=== PATIENT | female | born 1945 | race Caucasian/White ===

== ENCOUNTER 2017-01-19 16:40 | Emergency (ER) | payer OTHER ==
[~2017-01-19] VITALS: Ht 137.2 cm; Wt 66.3 kg
[~2017-01-19 16:40] MED LIST: CALTRATE 600 +1 EACH PO; CALTRATE 600600 MG PO; CARLSON VITAM2000 IU PO; CEFUROXIME500 MG PO; CENTRUM SILVER1 EAC3 PO; CENTRUM1 TA1 PO; CIPRO 500MG TA500 MG PO; CLEOCIN HCL300 M1 PO; DILAUDID2 M1 PO; FISH OIL 1,2001 EAC2 PO; FLAGYL500 MG PO; MASON NATURAL1200 MG PO; NORCO 325 MG-51 TAB PO; NORVASC 10MG10 MG PO; NORVASC10 M1 PO; PERCOCET 325 MG1 TA2 PO; POTASSIUM99 M1 PO; PRAVASTATIN SOD40 M2 PO; PROLIA60 MG/1 ML INJ; PROLIA60 MG/ML SC; TENORMIN 50MG T50 MG PO; TENORMIN50 M1 PO; TRAMADOL HCL50 M1 PO; VITAMIN B-121000 MC3 PO; VITAMIN B121000 MC2 PO; VITAMIN D2000 UNI1 PO; VITAMIN E200 I1 PO; VITAMIN E200 UNIT PO; ZYRTEC10 M3 PO; ZYRTEC10 MG PO
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
[2017-01-19] MEDS ORDERED: BACLOFEN10 M1 PO (21:52)
[2017-01-19] MEDS ORDERED: PERCOCET 5-3251 EACH PO (21:52)
[2017-01-19 21:56] VITALS: BP 118/75
[2017-01-19] MEDS ORDERED: INCENTIVE SPIROMETER (22:10)
== END 2017-01-19 22:25 ==
LOC: ERH 16:40
DX: S22.31XA Fracture of one rib, right side, initial encounter for closed fracture (principal); S80.02XA Contusion of left knee, initial encounter; S63.502A Unspecified sprain of left wrist, initial encounter; V89.2XXA Person injured in unspecified motor-vehicle accident, traffic, initial encounter; Y92.488 Other paved roadways as the place of occurrence of the external cause
CPT/HCPCS: 71111; 73110-LT; 73562-LT; 81001; 93005; 93010

== ENCOUNTER 2017-11-01 19:41 | Inpatient (IN) | payer OTHER ==
[~2017-11-01] VITALS: Ht 167.6 cm; Wt 62.8 kg
[~2017-11-01 19:41] MED LIST changes: +BACLOFEN10 M1 PO; +INCENTIVE SPIROMETER; +PERCOCET 5-3251 EACH PO
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
[2017-11-01 20:30] LABS: PT 10.7 SEC (9.4-12.5); PTT 36 SEC (25-37)
[2017-11-01 20:45] LABS: ABSOLUTE BASOPHIL COUNT 0 /CUMM (0.0-0.2); ABSOLUTE EOSINOPHIL COUNT 0.1 /CUMM (0.0-0.7); ABSOLUTE GRANULOCYTE CT 19.7 /CUMM (1.4-6.5); ABSOLUTE LYMPH COUNT 0.9 /CUMM (1.2-3.4); ABSOLUTE MONOCYTE COUNT 0.9 /CUMM (0.10-0.60); BASOPHIL % 0 % (0.0-2.0); EOSINOPHIL % 0.5 % (0-5); GRANULOCYTE % 91.4 % (42.2-75.2); HEMATOCRIT 43.9 % (37-47); MEAN CORPUSCULAR HGB 30.6 PG (27.0-31.0); MEAN CORPUSCULAR HGB CONC 33.3 G/DL (33.0-37.0); MEAN CORPUSCULAR VOLUME 91.8 FL (81.0-99.0); MEAN PLATELET VOLUME 8.7 FL (7.4-10.4); PLATELET COUNT 238 /CUMM (130-400); RBC DISTRIBUTION WIDTH 13.1 % (11.5-14.5); RED BLOOD CELL CT 4.78 /CUMM (4.20-5.40); WHITE BLOOD CELL COUNT 21.6 /CUMM (4.8-10.8)
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
--- NOTE | 2017-11-01 22:27 | Cons- Orthopedic ---
General Information and HPI Consulting Request Date of Consult: 11/01/17 Requested By: Emergency department/hospitalist service Reason for Consult: Left hip fracture Source of Information: patient Exam Limitations: no limitations History of Present Illness: Ms. Ross 72-year-old female with a past medical history of hypertension, hypercholesterolemia, osteoporosis presents today after mechanical fall at home. She states that she was not dizzy nor complained of blurred vision chest pain shortness of breath prior to fall. After the fall she did ambulate for approximately 2 hours at home but limp and leg became heavier with activity. After sitting down at dinner she was unable to stand at which time she was transferred to [facility] emergency room at which time x-rays were taken demonstrating impacted left femoral neck fracture. Allergies/Medications Allergies: Coded Allergies: celecoxib (From CELEBREX) (Severe, RASH, HIVES 01/13/16) Sulfa (Sulfonamide Antibiotics) (RASH, HIVES 01/13/16) codeine (N/V/D 01/13/16) Home Med List: Amlodipine Besylate (Norvasc) 10 MG TABLET 1 TAB PO DAILY BP (Reported) Atenolol (Tenormin) 50 MG TABLET 1 TAB PO DAILY BP (Reported) Calcium Carbonate/Vitamin D3 (Caltrate 600 + D Tablet) 1 EACH TABLET 1 TAB PO DAILY SUPPLEMENT (Reported) Cetirizine HCl (Zyrtec) 10 MG TABLET 1 TAB PO PRN ALLERGIES (Reported) Cholecalciferol (Vitamin D3) (Vitamin D) 2,000 UNIT TABLET 1 TAB PO DAILY SUPPLEMENT (Reported) Cyanocobalamin (Vitamin B-12) 1,000 MCG TABLET 1 TAB PO DAILY SUPPLEMENT ( Reported) Denosumab (Prolia) 60 MG/1 ML SYRINGE 60 MG INJ Q6M BONES (Reported) Multivit-Min/FA/Lycopen/Lutein (Centrum Silver Tablet) 1 EACH TABLET 1 TAB PO DAILY SUPPLEMENT (Reported) [place]-3S/Dha/Epa/Fish Oil (Fish Oil 1,200 MG Softgel) 1 EACH CAPSULE 1 CAP PO DAILY SUPPLEMENT (Reported) Potassium Gluconate (Potassium) 595 MG (99 MG) TABLET 1 TAB PO DAILY SUPPLEMENT (Reported) Pravastatin Sodium 40 MG TABLET 1 TAB PO DAILY CHOLESTEROL (Reported) Tramadol HCl 50 MG TABLET 1-2 TAB PO DAILY PAIN (Reported) Vitamin E Acetate (Vitamin E) 200 UNIT CAPSULE 1 CAP PO DAILY SUPPLEMENT ( Reported) Past History Medical History Neurological: NONE EENT: NONE Cardiovascular: hypertension Respiratory: emphysema Gastrointestinal: peptic ulcer disease Renal: NONE Musculoskeletal: SCOLIOSIS Psychiatric: NONE Endocrine: NONE Blood Disorders: NONE Cancer(s): NONE PROTEIN 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 Respiratory: normal breath sounds, no respiratory distress Cardiovascular: regular rate/rhythm Gastrointestinal: normal bowel sounds, soft, non-tender Extremities: normal inspection, left groin tenderness with passive internal and external rotation of left hip Neurologic/Psych: oriented x 3 Last 24 Hours of Labs: Laboratory Tests 11/01 Chemistry Lactic Acid Pending Urines Urine Color (YEL,AMB,STR) YEL Urine Clarity (CLEAR) CLEAR Urine pH (5.0 - 8.0) 6.0 Ur Specific [place] (1.001 - 1.035) 1.015 Urine Protein (NEG,<30 MG/DL) NEG Urine Ketones (NEG) NEG Urine Nitrite (NEG) NEG Urine Bilirubin (NEG) NEG Urine Urobilinogen (0.1 - 1.0 EU/dl) 0.2 Ur Leukocyte Esterase (NEG) NEG Ur Microscopic SEDIMENT EXAMINED Urine RBC (0 - 5 /HPF) RARE Urine WBC (0 - 2 /HPF) RARE Ur Epithelial Cells (NONE,FEW) RARE Urine Hemoglobin (NEG) TRACE-INTACT Urine Glucose (N MG/DL) NEG 11/01 2002 Chemistry Sodium (137 - 145 mmol/L) 137 Potassium (3.5 - 5.1 mmol/L) 4.3 Chloride (98 - 107 mmol/L) 100 Carbon Dioxide (22 - 30 mmol/L) 26 Anion Gap (5 - 16) 11 BUN (7 - 17 mg/dL) 16 Creatinine (0.5 - 1.0 mg/dL) 0.6 Estimated GFR (>60 ml/min) > 60 BUN/Creatinine Ratio (7 - 25 %) 26.7 H Glucose (65 - 99 mg/dL) 139 H Calcium (8.4 - 10.2 mg/dL) 9.3 Total Bilirubin (0.2 - 1.3 mg/dL) 0.6 AST (14 - 36 U/L) 33 ALT (9 - 52 U/L) 34 Alkaline Phosphatase (<127 U/L) 63 Troponin I (< 0.11 ng/ml) < 0.01 Total Protein (6.3 - 8.2 g/dL) 6.3 Albumin (3.5 - 5.0 g/dL) 4.1 Globulin (1.9 - 4.2 gm/dL) 2.2 Albumin/Globulin Ratio (1.1 - 2.2 %) 1.9 Coagulation PT (9.4 - 12.5 SEC) 10.7 INR (0.90 - 1.19) 1.02 APTT (25 - 37 SEC) 36 Hematology CBC w Diff MAN DIFF ORDERED WBC (4.8 - 10.8 /CUMM) 21.6 H RBC (4.20 - 5.40 /CUMM) 4.78 Hgb (12.0 - 16.0 G/DL) 14.6 Hct (37 - 47 %) 43.9 MCV (81.0 - 99.0 FL) 91.8 MCH (27.0 - 31.0 PG) 30.6 MCHC (33.0 - 37.0 G/DL) 33.3 RDW (11.5 - 14.5 %) 13.1 Plt Count (130 - 400 /CUMM) 238 MPV (7.4 - 10.4 FL) 8.7 Gran % (42.2 - 75.2 %) 91.4 H Lymphocytes % (20.5 - 51.1 %) 4.1 L Monocytes % (1.7 - 9.3 %) 4.0 Eosinophils % (0 - 5 %) 0.5 Basophils % (0.0 - 2.0 %) 0 Absolute Granulocytes (1.4 - 6.5 /CUMM) 19.7 H Segmented Neutrophils (42.2 - 75.2 %) 76 H Band Neutrophils (0.0 - 5.0 %) 13 H Absolute Lymphocytes (1.2 - 3.4 /CUMM) 0.9 L Lymphocytes (20.5 - 51.1 %) 4 L Monocytes (1.7 - 9.3 %) 6 Absolute Monocytes (0.10 - 0.60 /CUMM) 0.9 H Absolute Eosinophils (0.0 - 0.7 /CUMM) 0.1 Absolute Basophils (0.0 - 0.2 /CUMM) 0 Metamyelocytes (0.0 - 1.0 %) 1 Platelet Estimate (ADEQUATE) ADEQUATE Normochromic RBCs VERIFIED Imaging Results: SERVICE DATE: 11/01/17 EXAM TYPE: RAD - XRY-AP PELVIS; XRY-HIP 2-3 VIEWS, LEFT EXAMINATION: XR PELVIS CLINICAL INFORMATION: Left-sided trauma COMPARISON: CT pelvis 03/01/2017 TECHNIQUE: AP view of the pelvis. 2 AP and one lateral views of the left hip. FINDINGS: Pelvis: There is an impacted subcapital left femoral neck fracture. The pelvic ring is intact. Surgical anchors from prior mesh abdominal wall repair. Idiopathic lumbar scoliosis. Left hip: Acute impacted left subcapital femoral neck fracture. IMPRESSION: Acute, impacted left subcapital femoral neck fracture. DICTATED BY: Shaun Ramires MD DATE/TIME DICTATED:11/01/172047 FUNDS TRANSFER CLERK:KEM DATE/TIME TRANSCRIBED:11/01/172047 Assessment/Plan Assessment/Plan Mrs. Ross 72-year-old female who sustained a mechanical fall at home resulting in an impacted left femoral neck fracture. This case was reviewed by Dr. Kolb who is known to this patient and he recommends that the patient undergo open reduction internal fixation of left hip fracture when medically cleared. Plan Admit to medical service Nothing by mouth after midnight 2 operating room when medically cleared for open reduction internal fixation of left hip fracture Consult Acknowledgment - Thank you for your consult request.
--- NOTE | 2017-11-01 22:44 | History & Physical ---
Kallie Lozada MD 11/01/17 7005: General Information and HPI MD Statement: I have seen and personally examined CLARISA MONSIVAIS and documented this H&P. The patient is a 72 year old F who presented with a patient stated chief complaint of mechanical fall Source of Information: patient, old records Exam Limitations: no limitations History of Present Illness: Patient is a 72-year-old female with a past medical history significant for hypertension, hyperlipidemia, scoliosis, chronic lower back pain, osteoarthritis , osteoporosis, emphysema not on home oxygen, peptic ulcer disease with bleeding peptic ulcer requiring gastrectomy, cholecystectomy, hernia repair, former smoker 20 years ago, that presents to us status post a mechanical fall. The patient is brought in by ambulance from home where she lives with her and cat. 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 She states that she tripped on the couch cover and fell on her left side. The patient states that she commonly falls on her left side and in fact has fractured several ribs and her humerus in the past. The patient denies any preceding lightheadedness, dizziness, any associated confusion, seizure like activity, blurry vision at the time, chest pain, shortness of breath, palpitations. The patient states that she was able to get up and did continue about her business the next 2 hours, limping to ambulate. The patient states that her baseline she shuffles her feet and has done so ever since she was young due to her scoliosis. The patient states that she went to the bathroom and when she tried to get up from the toilet felt a "jerk" in her hip. She was able to stand up but when she sat down for dinner wasn't able to stand up after it was over so decided to come in to see us. She denies any loss of consciousness or hitting her head. The patient states now that the pain in her hip is nonradiating. In fact she feels no pain "because of the morphine that you gave me". She denies any numbness or tingling sensation. The patient also denies headache but states that she does have "issues" with her sinuses frequently. She also denies any abdominal pain. She denies any recent change in bowel or urinary habits. She does state that she has recently had some on and off blurriness of her eyes bilaterally. She has been worked up with an clinic specialist who recently prescribed her steroid drops. The patient is not on any blood thinners. She takes vitamin B12, vitamin D, fish oil daily. The patient walks unassisted at home, has stairs in and out of the house that she also does unassisted. She does note pain in the knees due to her arthritis most days. The patient as stated before, has had previous falls. The patient has bone scans done every 2 years but she does not remember her T score. The patient's doctor is Dr. Oliver. The patient has seen an orthopedist in the past who prescribed her tramadol but stated that he would not intervene for her osteoarthritis. Patient has a family history of scoliosis and various cancers. The patient lives with her and states that she feels safe at home. 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 She notes rare social alcohol use, no drugs, quit smoking 20 years ago. Allergies/Medications Allergies: Coded Allergies: celecoxib (From CELEBREX) (Severe, RASH, HIVES 01/13/16) Sulfa (Sulfonamide Antibiotics) (RASH, HIVES 01/13/16) codeine (N/V/D 01/13/16) Home Med list Amlodipine Besylate (Norvasc) 10 MG TABLET 1 TAB PO DAILY BP (Reported) Atenolol (Tenormin) 50 MG TABLET 1 TAB PO DAILY BP (Reported) Calcium Carbonate/Vitamin D3 (Caltrate 600 + D Tablet) 1 EACH TABLET 1 TAB PO DAILY SUPPLEMENT (Reported) Cetirizine HCl (Zyrtec) 10 MG TABLET 1 TAB PO PRN ALLERGIES (Reported) Cholecalciferol (Vitamin D3) (Vitamin D) 2,000 UNIT TABLET 1 TAB PO DAILY SUPPLEMENT (Reported) Cyanocobalamin (Vitamin B-12) 1,000 MCG TABLET 1 TAB PO DAILY SUPPLEMENT ( Reported) Denosumab (Prolia) 60 MG/1 ML SYRINGE 60 MG INJ Q6M BONES (Reported) Multivit-Min/FA/Lycopen/Lutein (Centrum Silver Tablet) 1 EACH TABLET 1 TAB PO DAILY SUPPLEMENT (Reported) [place]-3S/Dha/Epa/Fish Oil (Fish Oil 1,200 MG Softgel) 1 EACH CAPSULE 1 CAP PO DAILY SUPPLEMENT (Reported) Potassium Gluconate (Potassium) 595 MG (99 MG) TABLET 1 TAB PO DAILY SUPPLEMENT (Reported) Pravastatin Sodium 40 MG TABLET 1 TAB PO DAILY CHOLESTEROL (Reported) Tramadol HCl 50 MG TABLET 1-2 TAB PO DAILY PAIN (Reported) Vitamin E Acetate (Vitamin E) 200 UNIT CAPSULE 1 CAP PO DAILY SUPPLEMENT ( Reported) Compliance With Home Meds: GOOD Past History Travel History Traveled to [place] past 21 day No Medical History Neurological: NONE EENT: NONE Cardiovascular: hypertension Respiratory: emphysema Gastrointestinal: peptic ulcer disease Renal: NONE Musculoskeletal: SCOLIOSIS Psychiatric: NONE Endocrine: NONE Blood Disorders: NONE Cancer(s): NONE MEDICAL INSURANCE CODER/Reproductive: NONE Tetanus Vaccine: 12/31/15 Surgical History Surgical History: cholecystectomy, hernia repair-incisional, billroth I gastrectomy Past Family/Social History Family History Relations & Conditions if any FH: scoliosis Relation not specified Review of Systems Review of Systems Constitutional: Reports: weakness. EENTM: Reports: blurred vision. Cardiovascular: Reports: no symptoms. Respiratory: Reports: no symptoms. GI: Reports: no symptoms. Genitourinary: Reports: no symptoms. Musculoskeletal: Reports: no symptoms (left hip pain from fall), back pain, joint pain, muscle pain. Skin: Reports: no symptoms. Neurological/Psychological: Reports: no symptoms. Hematologic/Endocrine: Reports: no symptoms. Immunologic/Allergic: Reports: no symptoms. Exam & Diagnostic Data Last 24 Hrs of Vital Signs/I&O Vital Signs Date Time Temp Pulse Resp B/P B/P Pulse O2 O2 Flow FiO2 Mean Ox Delivery Rate 11/02 0040 97.6 85 16 123/73 92 Room Air 11/01 2210 98.4 77 16 130/61 93 Room Air 11/01 1953 94 Room Air 11/01 1952 97.3 79 18 167/77 94 Room Air Intake & Output 11/02 0800 03 0000 11/01 1600 Intake Total Output Total 1200 Balance -1200 Output, Urine 1200 Patient 139 lb Weight Physical Exam General Appearance Alert, Oriented X3, Cooperative, No Acute Distress Skin No Rashes, No Breakdown, No Significant Lesion Skin Temp/Moisture Exam: Warm/Dry Sepsis Skin Exam (color): Normal for Ethnicity HEENT Atraumatic, EOMI, Mucous Membr. moist/pink Neck Supple Cardiovascular Regular Rate, Normal S1, Normal S2, No Murmurs Lungs Clear to Auscultation, Normal Air Movement Abdomen Normal Bowel Sounds, Soft, No Tenderness, No Hepatospenomegaly Neurological Normal Speech, Sensation Intact Extremities No Clubbing, No Cyanosis, Normal Pulses, +2 non pitting lower ext edema Vascular Normal Pulses, Pulses Symmetrical Assessment/Plan Assessment: Patient is a 72-year-old female with a past medical history significant for hypertension, hyperlipidemia, scoliosis, chronic lower back pain, osteoarthritis , osteoporosis, emphysema not on home oxygen, peptic ulcer disease with bleeding peptic ulcer requiring gastrectomy, cholecystectomy, hernia repair, former smoker 20 years ago, that presents to us status post a mechanical fall. Patient has no neurologic sequelae didn't has no neurologic sequelae, is on blood thinners, usually ambulates independently. Vitals in the ED were heart rate 79, respiratory rate 18, blood pressure 167/77 decreasing to 130/61 at the time of interview, 94% oxygen saturation on room air , afebrile. Labs were pertinent for WBC count of 21.6 with a granulocyte predominance and increased bands. Hemoglobin 14.6, platelets 238, urinalysis and coag panel normal, creatinine 0.6, glucose mildly elevated 139, lactic acid negative at 1.3, troponin negative. X-ray of the hip and pelvis showed acute impacted left subcapital femoral neck fracture. Chest x-ray showed left humeral fracture, left lateral third to seventh rib fractures, no acute lung issues. EKG showed a rate of 68, T-wave inversions in V1 and V2 with a QTC of 426 unchanged from previous EKG several months prior. Plan Admit patient to general medicine floors for medical management and clearance prior to orthopedic surgery. Femur fracture We have consulted with orthopedics who will do an open reduction and internal fixation procedure tomorrow Patient METS are about 3 as she does participate in light to moderate intensity activities with some disability secondary to increased pain of the knees with her osteoarthritis. Patient's RCRI is 0.4% for this low risk procedure. Patient is nothing by mouth after midnight Salcedo has been placed Type and cross has been done Pain control with Tylenol 650 for mild pain, Percocet for moderate pain and morphine for severe pain. Patient is on Prolia for her osteoporosis outpatient. We will continue her vitamin D inpatient. 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 Leukocytosis: Patient is basically asymptomatic with no evidence of infection except for increased white cell count. Unknown source as chest x-ray is normal, vitals are normal, urinalysis is normal, patient is afebrile. Patient is not on steroids other than eyedrops. Patient has no known history of cancer. She however does have a family history of various cancers. Blood cultures and urine cultures. Follow temperature and white blood cell count. Chronic medical problems Pravastatin 40 mg for her hyperlipidemia Atenolol 50 mg, amlodipine 10 mg for her hypertension Patient is nothing by mouth DVT prophylaxis with Alps, no pharmacologic anticoagulation in preparation for surgery Patient is full code As Ranked By This Provider Problem List: 1. Closed left hip fracture Qualifiers Encounter type: initial encounter Qualified Code: S72.002A - Fracture of unspecified part of neck of left femur, initial encounter for closed fracture 2. Contusion of left knee, initial encounter Core Measures/Misc (05/21) Acute Coronary Syndrome ACS Diagnosis: No Congestive Heart Failure Congestive Heart Failure Diagnosis No Cerebrovascular Accident CVA/TIA Diagnosis: No VTE (View Protocol) VTE Risk Factors Trauma No Mechanical VTE Prophylaxis d/t N/A MechProphylax Ordered No VTE Pharm Prophylaxis d/t Surgical Contraindication Sepsis (View protocol) Sepsis Present: No Anibal Yanes 11/01/17 2259: Resident Review Statement Resident Statement: examined this patient, discussed with promotions intern, agreed with promotions intern, reviewed images Other Findings: Mrs. Monsivais is a 72 yo women with PMHx of HTN, peptic ulcer disease, COPD, osteoporosis with a bone scan done 2 years ago. presented to ED after a mechanical fall found to have subcapital femoral neck fracture. Patient deies any current pain, she was medicated with morphine at ED, She denies any chect pain, SOB, fever, chills, palpitation, dizziness and no change in urinary or kari habits. EKG showed no acute changes, she is able to climb a flight of stairs with no issue prior to the fall, RCRI with low risk of cardiovascular events, will continue her home dose of B-gutierrez, amlodipine and losartan. She is a full code DVT ppx after the procedure Cathy Cole 11/02/17 0519: Attending MD Review Statement Attending Statement Attending MD Statement: examined this patient, discuss w/resident/PA/MANAGER PROPOSAL, agreed w/resident/PA/MANAGER PROPOSAL, reviewed EMR data (avail), reviewed images, amended to note Attending Assessment/Plan: CC: Fall PMH: HTN, HLD, scoliosis, osteoporosis, COPD, S/P gastrectomy secondary to bleeding peptic ulcer, S/P cholecystectomy Patient came to ER for left hip pain after fall. Patient was on sitting a phone call this afternoon when she may have tripped on something and fell on her left side. She had trauma to left hip and left side of the body, did not have any head strike, no loss of consciousness. Patient did not feel any dizziness, lightheadedness, chest pain, palpitations before the fall. Patient did not have any seizure or confusion after the fall. She got up after the fall and was walking for 2 hours, almost dragging her left leg. Gradually her pain worsened and when she had dinner she could not get up from the chair because of pain so she decided to come to ER. At baseline she is active, denies any complaints like angina or shortness of breath on exertion. No coronary artery disease, CVA history. Vitals: Afebrile, pulse in 70s, RR 18, blood pressure 130/61, saturating well on room air. On exam: A O 3, cooperative, no acute distress, neck supple, JVD normal, no lymphadenopathy, mucosa moist, no focal neurological deficit, no dependent edema , no obvious skin rashes or inflammation tenderness on left hip, left leg internally rotated, no bruises or tenderness on left upper extremity, elbow or shoulder. CVS: S1-S2, RRR. RS: Clear to auscultate bilaterally. Abdomen: Soft, NT, ND, bowel sounds present. CXR: Evidence of a prior left-sided trauma. No acute disease identified. Hip and pelvis x-ray: Acute, impacted left subcapital femoral neck fracture. Assessment and plan 72-year-old female with multiple comorbidities and osteoporosis presented in ER after what appears to be mechanical fall. Even after her fall she was walking on her own, dragging her left leg. But her pain was progressively worsened so she came to ER. She is found to have left femoral neck fracture. Orthopedic had been consulted, they plan surgery in a.m. Patient does not have any significant cardiac history, no CVA, no history of diabetes. Blood pressure appears controlled. She is asymptomatic for angina at baseline, active without symptoms. Patient's RCRI is 0.4% for this low risk procedure. Patient's found to have significant leukocytosis with left shift and 13 bands. At this point no obvious source of infection identified, patient is asymptomatic in that regard, chest x- ray unremarkable, urine analysis is normal, no obvious skin rashes or inflammation. Leukocytosis probably reactive + Left femoral neck fracture + Reactive leukocytosis : Repeat labs , watch for any fever spikes: in that situation need to start antibiotics + Preop evaluation + History of HTN, HLD, scoliosis, osteoporosis, COPD - Admit to general medicine - Continue gentle hydration - Nothing by mouth after midnight - Continue Salcedo catheter - Continue oral antihypertensives, nebulization and TRC - Anticoagulation after surgery - Follow blood cultures for leukocytosis, repeat labs in a.m. - Follow orthopedic recommendation - Adequate pain control
--- NOTE | 2017-11-02 05:20 | Admission Certification ---
Admission Certification Certification Statement - As attending physician, I certify that at the time of - admission, based on clinical presentation, severity of - symptoms, need for further diagnostic testing and - therapeutic interventions, and risk of adverse outcomes - without in-hospital treatment, in my clinical assessment, - this patient requires an acute hospital stay for a minimum - of two nights or longer. I have also considered psychsocial - factors such as support system, advanced age, financial - issues, cognitive issues, and failed out-patient treatments, - past re-admission history, safety of patient, and lack of - compliance as applicable. Specific rationale supporting this admission is: Left femur neck fracture
[2017-11-02 05:49] LABS: ABSOLUTE BASOPHIL COUNT 0 /CUMM (0.0-0.2); ABSOLUTE EOSINOPHIL COUNT 0.2 /CUMM (0.0-0.7); ABSOLUTE GRANULOCYTE CT 9.9 /CUMM (1.4-6.5); ABSOLUTE LYMPH COUNT 0.8 /CUMM (1.2-3.4); ABSOLUTE MONOCYTE COUNT 0.8 /CUMM (0.10-0.60); BASOPHIL % 0 % (0.0-2.0); EOSINOPHIL % 1.7 % (0-5); GRANULOCYTE % 84.7 % (42.2-75.2); MEAN CORPUSCULAR HGB 30.4 PG (27.0-31.0); MEAN CORPUSCULAR HGB CONC 33.3 G/DL (33.0-37.0); MEAN CORPUSCULAR VOLUME 91.3 FL (81.0-99.0); MEAN PLATELET VOLUME 8.2 FL (7.4-10.4); PLATELET COUNT 228 /CUMM (130-400); RBC DISTRIBUTION WIDTH 13.1 % (11.5-14.5); WHITE BLOOD CELL COUNT 11.7 /CUMM (4.8-10.8)
--- NOTE | 2017-11-02 09:45 | CT SCAN REPORT ---
EXAMINATION: CT PELVIS WITHOUT CONTRAST CLINICAL INFORMATION: Hip fracture. COMPARISON: Radiographs 11/01/2017. TECHNIQUE: Helical scanning was performed with submillimeter collimation through the pelvis. Sagittal and coronal multiplanar 2-D reconstructions were obtained. DLP: 700 mGy-cm FINDINGS: There is a subcapital fracture of the left femoral head with slight impaction, particularly the anterolateral aspect. Anterolaterally, there is 8 mm of overriding/impaction. This results in anterior angulation and anterior rotation of the femoral head within the acetabulum. There are no additional fractures. There is [id number] bilateral hip osteoarthritis and severe degenerative disc disease of L4 and L5 with large osteophytes on the left. Extensive atherosclerotic calcifications of the abdominal aorta and iliac branches. No pelvic adenopathy or free fluid. Incidental sigmoid diverticulosis and lower abdominal hernia repair mesh. IMPRESSION: Left femoral neck fracture as detailed in the comments. Anterolateral impaction results in slight anterior and valgus angulation and shortening of the femoral neck.
--- NOTE | 2017-11-02 10:26 | PN- Housestaff ---
Gregory Villaseñor 11/02/17 1017: Subjective Follow-up For: Left femoral neck fracture. Subjective: Patient seen and examined. Drowsy but arousable. Alert and oriented 3. Complains of pain in left hip, 10/10 when worse, under control at this time after morphine dose. Describes the pain is tolerable at this time. No numbness tingling in arms or legs. No chest pain palpitations or shortness of breath. Other systems reviewed and negative except as above. Review of Systems Constitutional: Reports: see HPI. Objective Last 24 Hrs of Vital Signs/I&O Vital Signs Date Time Temp Pulse Resp B/P B/P Pulse O2 O2 Flow FiO2 Mean Ox Delivery Rate 11/02 0959 99.4 90 18 162/74 94 11/02 0825 Room Air Room Air 11/02 0747 98.7 86 20 120/70 94 Room Air 11/02 0526 97.9 85 16 146/67 92 Room Air 11/02 0040 97.6 85 16 123/73 92 Room Air 11/01 2211 98.4 77 16 130/61 93 Room Air 11/01 1954 94 Room Air 11/01 195 97.3 79 18 167/77 94 Room Air Intake & Output 11/02 1600 11/02 0800 11/02 0000 Intake Total Output Total 800 1200 Balance -800 -1200 Output, Urine 800 1200 Patient 139 lb Weight Physical Exam General Appearance: Alert, Oriented X3, Cooperative Sepsis Skin Exam (color): Normal for Ethnicity HEENT: Atraumatic, PERRLA, EOMI Neck: Supple, No JVD Cardiovascular: Regular Rate, Normal S1, Normal S2 Lungs: Clear to Auscultation, Normal Air Movement Abdomen: Normal Bowel Sounds, Soft, No Tenderness Neurological: Normal Gait, Normal Speech Extremities: range of motion limited secondary to pain in left lower extremity. Tenderness to palpation left hip joint. No erythema, swelling or hematoma noted. Vascular: Normal Pulses, Pulses Symmetrical Current Medications: Current Medications Sig/Glo Start time Last Medication Dose Route Stop Time Status Admin Acetaminophen 0 .STK-MED ONE 11/02 1010 DC IV Acetaminophen 1,000 MG Q6H 11/02 0900 AC 11/02 N/A 1 UNIT IV 11/03 0314 1013 Acetaminophen 0 .STK-MED ONE 11/02 0047 DC PO Acetaminophen 650 MG Q6P PRN 11/01 2300 AC 11/02 PO 0046 Amlodipine Besylate 0 .STK-MED ONE 11/02 1010 DC PO Amlodipine Besylate 10 MG DAILY 11/02 1000 AC PO Atenolol 50 MG DAILY 11/02 1000 AC PO Cholecalciferol 1,000 IU DAILY 11/02 1000 AC PO Heparin Sodium 5,000 UNIT Q8 11/02 0600 AC 11/02 (Porcine) SC 0536 Heparin Sodium 0 .STK-MED ONE 11/02 0535 DC (Porcine) .ROUTE Morphine Sulfate 2 MG Q8P PRN 11/02 0900 AC IV Morphine Sulfate 0 .STK-MED ONE 11/02 0534 DC .ROUTE Morphine Sulfate 4 MG Q8P PRN 11/01 2300 DC 11/02 IV 0537 Morphine Sulfate 0 .STK-MED ONE 11/01 2012 DC .ROUTE Morphine Sulfate 2 MG ONCE ONE 11/01 1999 DC 11/01 IV 11/01 Oxycodone/ 1 TAB Q6P PRN 11/01 2300 AC Acetaminophen PO Polyethylene Glycol 17 GM DAILY 11/03 1000 AC PO Pravastatin Sodium 40 MG 1700 11/02 1700 AC PO Senna/Docusate Sodium 1 TAB BID 11/02 2200 AC PO Sodium Chloride 1,000 ML Q13H 11/02 0900 AC 11/02 IV 11/03 1059 1013 Last 24 Hrs of Lab/[place] Results Last 24 Hrs of Labs/Mics: Laboratory Tests 11/02/17 0530: Anion Gap 8, Estimated GFR > 60, BUN/Creatinine Ratio 20.0, CBC w Diff MAN DIFF ORDERED, RBC 4.60, MCV 91.3, MCH 30.4, MCHC 33.3, RDW 13.1, MPV 8.2, Gran % 84.7 H, Lymphocytes % 6.6 L, Monocytes % 7.0, Eosinophils % 1.7, Basophils % 0, Absolute Granulocytes 9.9 H, Segmented Neutrophils 74, Band Neutrophils 4, Absolute Lymphocytes 0.8 L, Lymphocytes 14 L, Monocytes 5, Absolute Monocytes 0.8 H, Eosinophils 1, Absolute Eosinophils 0.2, Basophils 2, Absolute Basophils 0, Platelet Estimate ADEQUATE, Normocytic RBCs VERIFIED, Normochromic RBCs VERIFIED 11/02/17 0117: Lactic Acid Cancelled 11/01/175: Lactic Acid 1.3 11/01/172114: Urine Color YEL, Urine Clarity CLEAR, Urine pH 6.0, Ur Specific [place] 1.015, Urine Protein NEG, Urine Ketones NEG, Urine Nitrite NEG, Urine Bilirubin NEG, Urine Urobilinogen 0.2, Ur Leukocyte Esterase NEG, Ur Microscopic SEDIMENT EXAMINED, Urine RBC RARE, Urine WBC RARE, Ur Epithelial Cells RARE, Urine Hemoglobin TRACE-INTACT, Urine Glucose NEG 11/01/172002: Anion Gap 11, Estimated GFR > 60, BUN/Creatinine Ratio 26.7 H, Glucose 139 H, Calcium 9.3, Total Bilirubin 0.6, AST 33, ALT 34, Alkaline Phosphatase 63, Troponin I < 0.01, Total Protein 6.3, Albumin 4.1, Globulin 2.2, Albumin/ Globulin Ratio 1.9, PT 10.7, INR 1.02, APTT 36, CBC w Diff MAN DIFF ORDERED, RBC 4.78, MCV 91.8, MCH 30.6, MCHC 33.3, RDW 13.1, MPV 8.7, Gran % 91.4 H, Lymphocytes % 4.1 L, Monocytes % 4.0, Eosinophils % 0.5, Basophils % 0, Absolute Granulocytes 19.7 H, Segmented Neutrophils 76 H, Band Neutrophils 13 H, Absolute Lymphocytes 0.9 L, Lymphocytes 4 L, Monocytes 6, Absolute Monocytes 0.9 H, Absolute Eosinophils 0.1, Absolute Basophils 0, Metamyelocytes 1, Platelet Estimate ADEQUATE, Normochromic RBCs VERIFIED Microbiology 11/01 2214 BLOOD: Blood Culture - RECD 11/01 2199 BLOOD: Blood Culture - RECD 11/01 2114 URINE ROUT: Urine Culture - RES Assessment/Plan Assessment: 72-year-old woman with long-standing history of osteoporosis presented to [facility] ED last night after sustaining a mechanical fall, to be scheduled for left hip open reduction and internal fixation here this afternoon. 1. Impacted left femoral neck fracture. Continue nothing by mouth status. Continue gentle hydration. Scheduled for ORIF later this afternoon. Optimal pain control with IV Tylenol [id number] and morphine for breakthrough pain. Bowel regimen while on narcotics. 2. Hypertension. Continue beta gutierrez and calcium channel gutierrez. 3. Hyperlipidemia. Continue atorvastatin. Full code. Heparin for DVT prophylaxis. Nothing by mouth. Problem List: 1. Closed left hip fracture Pain Ratin Pain Location: Left hip Pain Goal: Pain 4 or less Pain Plan: Tylenol and Morphine Tomorrow's Labs & Rationales: Post Op Branden CHRIS,Nga 11/02/17 1122: Attending MD Review Statement Attending Statement Attending MD Statement: examined this patient, discuss w/resident/PA/HEALTH MANAGEMENT CONSULTANT, agreed w/resident/PA/HEALTH MANAGEMENT CONSULTANT, discussed with family, reviewed EMR data (avail), discussed with nursing, discussed with case mgmt, reviewed images, amended to note Attending Assessment/Plan: Patient seen and examined, does complain of pain in her left hip. Patient is admitted with a fall as well as left femur fracture. Vital Signs Date Time Temp Pulse Resp B/P B/P Pulse O2 O2 Flow FiO2 Mean Ox Delivery Rate 11/02 0959 99.4 90 18 162/74 94 11/02 0825 Room Air Room Air 11/02 0747 98.7 86 20 120/70 94 Room Air 11/02 0526 97.9 85 16 146/67 92 Room Air 11/02 0040 97.6 85 16 123/73 92 Room Air 11/01 221 98.4 77 16 130/61 93 Room Air 11/01 1954 94 Room Air 11/01 1952 97.3 79 18 167/77 94 Room Air on exam; aox3, nad. cv; s1,s2, rrr resp; clear abd; soft, nt, bs+ ext; trace edema. Laboratory Tests 11/02 11/02 11/01 0530 0117 2215 Chemistry Sodium (137 - 145 mmol/L) 139 Potassium (3.5 - 5.1 mmol/L) 4.2 Chloride (98 - 107 mmol/L) 103 Carbon Dioxide (22 - 30 mmol/L) 28 Anion Gap (5 - 16) 8 BUN (7 - 17 mg/dL) 12 Creatinine (0.5 - 1.0 mg/dL) 0.6 Estimated GFR (>60 ml/min) > 60 BUN/Creatinine Ratio (7 - 25 %) 20.0 Lactic Acid (0.7 - 2.1 mmol/L) Cancelled 1.3 Hematology CBC w Diff MAN DIFF ORDERED WBC (4.8 - 10.8 /CUMM) 11.7 H RBC (4.20 - 5.40 /CUMM) 4.60 Hgb (12.0 - 16.0 G/DL) 14.0 Hct (37 - 47 %) 42.0 MCV (81.0 - 99.0 FL) 91.3 MCH (27.0 - 31.0 PG) 30.4 MCHC (33.0 - 37.0 G/DL) 33.3 RDW (11.5 - 14.5 %) 13.1 Plt Count (130 - 400 /CUMM) 228 MPV (7.4 - 10.4 FL) 8.2 Gran % (42.2 - 75.2 %) 84.7 H Lymphocytes % (20.5 - 51.1 %) 6.6 L Monocytes % (1.7 - 9.3 %) 7.0 Eosinophils % (0 - 5 %) 1.7 Basophils % (0.0 - 2.0 %) 0 Absolute Granulocytes (1.4 - 6.5 /CUMM) 9.9 H Segmented Neutrophils (42.2 - 75.2 %) 74 Band Neutrophils (0.0 - 5.0 %) 4 Absolute Lymphocytes (1.2 - 3.4 /CUMM) 0.8 L Lymphocytes (20.5 - 51.1 %) 14 L Monocytes (1.7 - 9.3 %) 5 Absolute Monocytes (0.10 - 0.60 /CUMM) 0.8 H Eosinophils (0 - 5.0 %) 1 Absolute Eosinophils (0.0 - 0.7 /CUMM) 0.2 Basophils (0.0 - 2.0 %) 2 Absolute Basophils (0.0 - 0.2 /CUMM) 0 Platelet Estimate (ADEQUATE) ADEQUATE Normocytic RBCs VERIFIED Normochromic RBCs VERIFIED 11/01 Chemistry Sodium (137 - 145 mmol/L) 137 Potassium (3.5 - 5.1 mmol/L) 4.3 Chloride (98 - 107 mmol/L) 100 Carbon Dioxide (22 - 30 mmol/L) 26 Anion Gap (5 - 16) 11 BUN (7 - 17 mg/dL) 16 Creatinine (0.5 - 1.0 mg/dL) 0.6 Estimated GFR (>60 ml/min) > 60 BUN/Creatinine Ratio (7 - 25 %) 26.7 H Glucose (65 - 99 mg/dL) 139 H Calcium (8.4 - 10.2 mg/dL) 9.3 Total Bilirubin (0.2 - 1.3 mg/dL) 0.6 AST (14 - 36 U/L) 33 ALT (9 - 52 U/L) 34 Alkaline Phosphatase (<127 U/L) 63 Troponin I (< 0.11 ng/ml) < 0.01 Total Protein (6.3 - 8.2 g/dL) 6.3 Albumin (3.5 - 5.0 g/dL) 4.1 Globulin (1.9 - 4.2 gm/dL) 2.2 Albumin/Globulin Ratio (1.1 - 2.2 %) 1.9 Coagulation PT (9.4 - 12.5 SEC) 10.7 INR (0.90 - 1.19) 1.02 APTT (25 - 37 SEC) 36 Hematology CBC w Diff MAN DIFF ORDERED WBC (4.8 - 10.8 /CUMM) 21.6 H RBC (4.20 - 5.40 /CUMM) 4.78 Hgb (12.0 - 16.0 G/DL) 14.6 Hct (37 - 47 %) 43.9 MCV (81.0 - 99.0 FL) 91.8 MCH (27.0 - 31.0 PG) 30.6 MCHC (33.0 - 37.0 G/DL) 33.3 RDW (11.5 - 14.5 %) 13.1 Plt Count (130 - 400 /CUMM) 238 MPV (7.4 - 10.4 FL) 8.7 Gran % (42.2 - 75.2 %) 91.4 H Lymphocytes % (20.5 - 51.1 %) 4.1 L Monocytes % (1.7 - 9.3 %) 4.0 Eosinophils % (0 - 5 %) 0.5 Basophils % (0.0 - 2.0 %) 0 Absolute Granulocytes (1.4 - 6.5 /CUMM) 19.7 H Segmented Neutrophils (42.2 - 75.2 %) 76 H Band Neutrophils (0.0 - 5.0 %) 13 H Absolute Lymphocytes (1.2 - 3.4 /CUMM) 0.9 L Lymphocytes (20.5 - 51.1 %) 4 L Monocytes (1.7 - 9.3 %) 6 Absolute Monocytes (0.10 - 0.60 /CUMM) 0.9 H Absolute Eosinophils (0.0 - 0.7 /CUMM) 0.1 Absolute Basophils (0.0 - 0.2 /CUMM) 0 Metamyelocytes (0.0 - 1.0 %) 1 Platelet Estimate (ADEQUATE) ADEQUATE Normochromic RBCs VERIFIED Urines Urine Color (YEL,AMB,STR) YEL Urine Clarity (CLEAR) CLEAR Urine pH (5.0 - 8.0) 6.0 Ur Specific [place] (1.001 - 1.035) 1.015 Urine Protein (NEG,<30 MG/DL) NEG Urine Ketones (NEG) NEG Urine Nitrite (NEG) NEG Urine Bilirubin (NEG) NEG Urine Urobilinogen (0.1 - 1.0 EU/dl) 0.2 Ur Leukocyte Esterase (NEG) NEG Ur Microscopic SEDIMENT EXAMINED Urine RBC (0 - 5 /HPF) RARE Urine WBC (0 - 2 /HPF) RARE Ur Epithelial Cells (NONE,FEW) RARE Urine Hemoglobin (NEG) TRACE-INTACT Urine Glucose (N MG/DL) NEG A/P; 72 y/o F with pmh sig for hypertension, hyperlipidemia, scoliosis, chronic lower back pain, osteoarthritis, osteoporosis, emphysema not on home oxygen, peptic ulcer disease with bleeding peptic ulcer requiring gastrectomy, cholecystectomy, hernia repair, former smoker 20 years ago, admitted with a mechanical fall and sustained a left femoral neck fracture. Patient is scheduled for surgery. Her RCRI risk index is 0.4 which puts her at low risk/class 1 with 0.4% risk of major cardiac events. Pain management is adequate. Patient to be taken to or this afternoon. Patient does take beta gutierrez at home which should be resumed, continue the rest of the medications. DVT prophylaxis: Heparin subcutaneous. Discussed with patient's at bedside.
[2017-11-02 14:05] VITALS: BP 112/72
--- NOTE | 2017-11-02 18:04 | Operative Report ---
Operative/Inv Procedure Report Surgery Date: 11/02/17 Name of Procedure: Left hip pinning Pre-Operative Diagnosis: Left hip femoral neck fracture Post-Operative Diagnosis: Same Estimated Blood Loss: scant Surgeon/Aircraft Painter Apprentice: ARDEN Anesthesia: laryngeal mask airway IV Fluids: See anesthesia record Implants: Susanna 6.5 cannulated screws Specimens: None Complications: None Condition: Stable Operative Indication: Patient 71-year-old female status post mechanical fall with an impacted left femoral neck fracture. She was indicated for percutaneous screw fixation. Risks and benefits of procedure discussed with the patient in detail. Operative/Procedure Note Note: Once informed consent was obtaine and the correct limb was identified patient brought to room placed on table supine position. Administration of general endotracheal anesthesia patient's leg was placed in the foot welsh for the fracture table. C-arm was brought in to confirm the fracture in the AP and lateral planes. The left lower 70 is an prepped and draped usual sterile fashion. To begin the procedure a small incision made on the lateral aspect of thigh after C-arm fluoroscopy confirmed starting position for the guidewires. Using C-arm fluoroscopy in the AP and lateral planes 3 guidewires were placed in to the femoral head across the femoral neck without complication. The position of the guidewires was confirmed both in the AP and lateral planes. The guidewires were then used to measure the screw length and we used 370 mm short thread cannulated screws. The guidewires were overdrilled with the cannulated drill. Screws were placed over the guidewires without compensation on the guidewires removed. Excellent fixation was obtained. Screw configuration screw length was confirmed in the AP and lateral planes. The wound was then irrigated with sterile saline and closed in layers. Skin was closed araceli. Sterile dressings applied and the patient was taken recovery room in stable condition.
[2017-11-02 19:46] VITALS: BP 112/70
--- NOTE | 2017-11-02 21:17 | PN- Orthopedic ---
Subjective Subjective: POSTOP CHECK Patient reports pain is improved and currently controlled. Denies numbness or tingling. Tolerating a diet, no nausea or vomiting Objective Vital Signs and I&Os Vital Signs Date Time Temp Pulse Resp B/P B/P Pulse O2 O2 Flow FiO2 Mean Ox Delivery Rate 11/02 194 98.7 78 18 112/70 97 Nasal 1.0L Cannula 11/02 1405 98.4 84 20 112/72 92 / 1400 Room Air 11/02 1202 87 122/63 11/02 1202 87 122/63 11/02 1200 98.6 87 15 122/63 94 Room Air Room Air 11/02 0959 99.4 90 18 162/74 94 11/02 0825 Room Air Room Air 11/02 0747 98.7 86 20 120/70 94 Room Air 11/02 0526 97.9 85 16 146/67 92 Room Air 11/02 0040 97.6 85 16 123/73 92 Room Air 11/01 2211 98.4 77 16 130/61 93 Room Air Intake & Output 11/02 1600 11/02 0800 11/02 0000 11/01 1600 11/01 0800 11/01 0000 Intake Total 150 Output Total 1150 1200 Balance -1000 -1200 Intake, IV 150 Intake, Oral 0 Output, Urine 1150 1200 Patient 139 lb 139 lb Weight Weight Reported by Patient Measurement Method Physical Exam: Gen - resting comfortably awake an alert in NAD Ext - Left hip dressing c/d/i, mild swelling, + sensation B/L, + dorsi/plantar flexion, + pedal pulses, alps in place, no significant edema or calf tenderness Assessment/Plan Assessment/Plan 72 F POD 0 s/p L hip pinning secondary to left femoral neck fracture PT eval in am, nwb x 2 weeks Cardiac diet, IVF Postop abx - ancef x2 Pain meds prn DVT ppx - lovenox 40 in am, d/c hsq Likely d/c paul in am Dressing change POD Will continue to follow
[2017-11-02 21:34] VITALS: BP 136/68
--- NOTE | 2017-11-02 22:58 | RADIOLOGY REPORT ---
EXAMINATION: XR HIP, LEFT CLINICAL INFORMATION: Left hip pinning COMPARISON: CT 11/02/2017 TECHNIQUE: 2 views, 5 fluoroscopic images of the left hip. Total fluoroscopic time 1 minute 20 seconds. FINDINGS: 3 cannulated screws are in place transfixing the subcapital left femoral neck fracture. Alignment is anatomic. IMPRESSION: Fluoroscopic guidance for internal fixation of left femoral neck fracture. Please refer to operative report for further information.
[2017-11-03 07:50] VITALS: BP 119/60
[2017-11-03 08:00] LABS: ABSOLUTE BASOPHIL COUNT 0 /CUMM (0.0-0.2); ABSOLUTE EOSINOPHIL COUNT 0.1 /CUMM (0.0-0.7); ABSOLUTE GRANULOCYTE CT 7.8 /CUMM (1.4-6.5); ABSOLUTE LYMPH COUNT 0.6 /CUMM (1.2-3.4); ABSOLUTE MONOCYTE COUNT 0.6 /CUMM (0.10-0.60); BASOPHIL % 0.1 % (0.0-2.0); EOSINOPHIL % 0.7 % (0-5); HEMATOCRIT 37.6 % (37-47); MEAN CORPUSCULAR HGB 30.5 PG (27.0-31.0); MEAN CORPUSCULAR HGB CONC 33.1 G/DL (33.0-37.0); MEAN CORPUSCULAR VOLUME 92.1 FL (81.0-99.0); MEAN PLATELET VOLUME 9.1 FL (7.4-10.4); RBC DISTRIBUTION WIDTH 12.9 % (11.5-14.5); RED BLOOD CELL CT 4.08 /CUMM (4.20-5.40); WHITE BLOOD CELL COUNT 9.1 /CUMM (4.8-10.8)
--- NOTE | 2017-11-03 09:03 | PN- Orthopedic ---
See Addendum Subjective Subjective: comfortable. mild pain in the L groin and thigh. feeling well otherwise. no acute events overnight Objective Vital Signs and I&Os Vital Signs Date Time Temp Pulse Resp B/P B/P Pulse O2 O2 Flow FiO2 Mean Ox Delivery Rate 11/03 0854 Room Air 11/03 0846 64 119/60 11/03 0846 64 119/60 11/03 0750 98.4 64 20 119/60 96 Room Air 11/03 0000 Nasal 1.0L Cannula 11/02 2134 97.9 83 16 136/68 93 Room Air 11/02 1946 98.7 78 18 112/70 97 Nasal 1.0L Cannula 11/02 1405 98.4 84 20 112/72 92 11/02 1400 Room Air 11/02 1202 87 122/63 11/02 1202 87 122/63 11/02 1200 98.6 87 15 122/63 94 Room Air Room Air 11/02 0959 99.4 90 18 162/74 94 Intake & Output 11/03 1600 11/03 0800 11/03 0000 11/02 1600 11/02 0800 11/02 0000 Intake Total 840 240 150 Output Total 300 1800 1150 1200 Balance -300 840 -1560 -1000 -1200 Intake, IV 600 150 Intake, Oral 240 240 0 Output, Urine 300 1800 1150 1200 Patient 139 lb 139 lb Weight Weight Reported by Patient Measurement Method Physical Exam: wdwn, aox3, nad, sitting up in bed, eating breakfast. no resp distress LLE- nvi, no calf pain, no edema. L hip dressing cdi, no thigh swelling. minimal pain with hip motion. Results Last 48 Hours of Labs: Laboratory Tests 11/03 11/02 11/02 0651 0530 0117 Chemistry Sodium (137 - 145 mmol/L) 142 139 Potassium (3.5 - 5.1 mmol/L) 3.9 4.2 Chloride (98 - 107 mmol/L) 108 H 103 Carbon Dioxide (22 - 30 mmol/L) 24 28 Anion Gap (5 - 16) 10 8 BUN (7 - 17 mg/dL) 11 12 Creatinine (0.5 - 1.0 mg/dL) 0.5 0.6 Estimated GFR (>60 ml/min) > 60 > 60 BUN/Creatinine Ratio (7 - 25 %) 22.0 20.0 Lactic Acid Cancelled Hematology CBC w Diff Pending MAN DIFF ORDERED WBC (4.8 - 10.8 /CUMM) Pending 11.7 H RBC (4.20 - 5.40 /CUMM) Pending 4.60 Hgb (12.0 - 16.0 G/DL) Pending 14.0 Hct (37 - 47 %) Pending 42.0 MCV (81.0 - 99.0 FL) Pending 91.3 MCH (27.0 - 31.0 PG) Pending 30.4 MCHC (33.0 - 37.0 G/DL) Pending 33.3 RDW (11.5 - 14.5 %) Pending 13.1 Plt Count (130 - 400 /CUMM) Pending 228 MPV (7.4 - 10.4 FL) Pending 8.2 Gran % (42.2 - 75.2 %) Pending 84.7 H Lymphocytes % (20.5 - 51.1 %) Pending 6.6 L Monocytes % (1.7 - 9.3 %) Pending 7.0 Eosinophils % (0 - 5 %) Pending 1.7 Basophils % (0.0 - 2.0 %) Pending 0 Absolute Granulocytes (1.4 - 6.5 /CUMM) Pending 9.9 H Segmented Neutrophils (42.2 - 75.2 %) 74 Band Neutrophils (0.0 - 5.0 %) 4 Absolute Lymphocytes (1.2 - 3.4 /CUMM) Pending 0.8 L Lymphocytes (20.5 - 51.1 %) 14 L Monocytes (1.7 - 9.3 %) 5 Absolute Monocytes (0.10 - 0.60 /CUMM) Pending 0.8 H Eosinophils (0 - 5.0 %) 1 Absolute Eosinophils (0.0 - 0.7 /CUMM) Pending 0.2 Basophils (0.0 - 2.0 %) 2 Absolute Basophils (0.0 - 0.2 /CUMM) Pending 0 Platelet Estimate (ADEQUATE) ADEQUATE Normocytic RBCs VERIFIED Normochromic RBCs VERIFIED 11/01 11/01 5041 2592 Chemistry Lactic Acid (0.7 - 2.1 mmol/L) 1.3 Urines Urine Color (YEL,AMB,STR) YEL Urine Clarity (CLEAR) CLEAR Urine pH (5.0 - 8.0) 6.0 Ur Specific [place] (1.001 - 1.035) 1.015 Urine Protein (NEG,<30 MG/DL) NEG Urine Ketones (NEG) NEG Urine Nitrite (NEG) NEG Urine Bilirubin (NEG) NEG Urine Urobilinogen (0.1 - 1.0 EU/dl) 0.2 Ur Leukocyte Esterase (NEG) NEG Ur Microscopic SEDIMENT EXAMINED Urine RBC (0 - 5 /HPF) RARE Urine WBC (0 - 2 /HPF) RARE Ur Epithelial Cells (NONE,FEW) RARE Urine Hemoglobin (NEG) TRACE-INTACT Urine Glucose (N MG/DL) NEG 11/01 2002 Chemistry Sodium (137 - 145 mmol/L) 137 Potassium (3.5 - 5.1 mmol/L) 4.3 Chloride (98 - 107 mmol/L) 100 Carbon Dioxide (22 - 30 mmol/L) 26 Anion Gap (5 - 16) 11 BUN (7 - 17 mg/dL) 16 Creatinine (0.5 - 1.0 mg/dL) 0.6 Estimated GFR (>60 ml/min) > 60 BUN/Creatinine Ratio (7 - 25 %) 26.7 H Glucose (65 - 99 mg/dL) 139 H Calcium (8.4 - 10.2 mg/dL) 9.3 Total Bilirubin (0.2 - 1.3 mg/dL) 0.6 AST (14 - 36 U/L) 33 ALT (9 - 52 U/L) 34 Alkaline Phosphatase (<127 U/L) 63 Troponin I (< 0.11 ng/ml) < 0.01 Total Protein (6.3 - 8.2 g/dL) 6.3 Albumin (3.5 - 5.0 g/dL) 4.1 Globulin (1.9 - 4.2 gm/dL) 2.2 Albumin/Globulin Ratio (1.1 - 2.2 %) 1.9 Coagulation PT (9.4 - 12.5 SEC) 10.7 INR (0.90 - 1.19) 1.02 APTT (25 - 37 SEC) 36 Hematology CBC w Diff MAN DIFF ORDERED WBC (4.8 - 10.8 /CUMM) 21.6 H RBC (4.20 - 5.40 /CUMM) 4.78 Hgb (12.0 - 16.0 G/DL) 14.6 Hct (37 - 47 %) 43.9 MCV (81.0 - 99.0 FL) 91.8 MCH (27.0 - 31.0 PG) 30.6 MCHC (33.0 - 37.0 G/DL) 33.3 RDW (11.5 - 14.5 %) 13.1 Plt Count (130 - 400 /CUMM) 238 MPV (7.4 - 10.4 FL) 8.7 Gran % (42.2 - 75.2 %) 91.4 H Lymphocytes % (20.5 - 51.1 %) 4.1 L Monocytes % (1.7 - 9.3 %) 4.0 Eosinophils % (0 - 5 %) 0.5 Basophils % (0.0 - 2.0 %) 0 Absolute Granulocytes (1.4 - 6.5 /CUMM) 19.7 H Segmented Neutrophils (42.2 - 75.2 %) 76 H Band Neutrophils (0.0 - 5.0 %) 13 H Absolute Lymphocytes (1.2 - 3.4 /CUMM) 0.9 L Lymphocytes (20.5 - 51.1 %) 4 L Monocytes (1.7 - 9.3 %) 6 Absolute Monocytes (0.10 - 0.60 /CUMM) 0.9 H Absolute Eosinophils (0.0 - 0.7 /CUMM) 0.1 Absolute Basophils (0.0 - 0.2 /CUMM) 0 Metamyelocytes (0.0 - 1.0 %) 1 Platelet Estimate (ADEQUATE) ADEQUATE Normochromic RBCs VERIFIED Assessment/Plan Assessment/Plan 72 F POD 1 s/p L hip pinning secondary to left femoral neck fracture PT eval, nwb x 2 weeks Postop abx - ancef x2 Pain meds prn DVT ppx - lovenox 40 in am, d/c hsq, start oral anticoagulation for 4 weeks and dc lovenox when medicine deems appropriate. Dressing change POD2 out pt fup in 2 weeks will follow. Core Measures Venous Thromboembolism VTE Risk Factors Trauma No Mechanical VTE Prophylaxis d/t N/A MechProphylax Ordered No VTE Pharm Prophylaxis d/t Surgical Contraindication
[2017-11-03 09:19] LABS: GRANULOCYTE % 85.8 % (42.2-75.2); PLATELET COUNT 180 /CUMM (130-400)
--- NOTE | 2017-11-03 10:33 | PN- Housestaff ---
Gregory Villaseñor 11/03/17 1027: Subjective Follow-up For: Left femoral neck fracture. Subjective: Doing well this morning. Offers no complaints. He and 0/10 and left hip. Status post surgery, tolerated procedure well. No chest pain, palpitations or shortness of breath. No cough. Continues to use spirometry. Other systems reviewed and negative, exceptions above. Review of Systems Constitutional: Reports: see HPI. Objective Last 24 Hrs of Vital Signs/I&O Vital Signs Date Time Temp Pulse Resp B/P B/P Pulse O2 O2 Flow FiO2 Mean Ox Delivery Rate 11/03 1018 Room Air 11/03 0854 Room Air 11/03 0846 64 119/60 11/03 0846 64 119/60 11/03 0750 98.4 64 20 119/60 96 Room Air 11/03 0000 Nasal 1.0L Cannula 11/02 2134 97.9 83 16 136/68 93 Room Air 11/02 1946 98.7 78 18 112/70 97 Nasal 1.0L Cannula 11/02 1405 98.4 84 20 112/72 92 11/02 1400 Room Air 11/02 1202 87 122/63 03 1202 87 122/63 11/02 1200 98.6 87 15 122/63 94 Room Air Room Air Intake & Output 11/03 1600 11/03 0800 11/03 0000 Intake Total 840 240 Output Total 300 1800 Balance -300 840 -1560 Intake, IV 600 Intake, Oral 240 240 Output, Urine 300 1800 Physical Exam General Appearance: Alert, Oriented X3, Cooperative Cardiovascular: Regular Rate, Normal S1, Normal S2 Lungs: Clear to Auscultation, Normal Air Movement Abdomen: Normal Bowel Sounds, Soft, No Tenderness Extremities: No Clubbing, No Cyanosis, No Edema Vascular: Normal Pulses, Pulses Symmetrical Current Medications: Current Medications Sig/Glo Start time Last Medication Dose Route Stop Time Status Admin Acetaminophen 500 MG Q6 11/03 0847 AC PO Acetaminophen 1,000 MG Q6H 11/02 0900 DC 11/03 N/A 1 UNIT IV 11/03 0314 0343 Acetaminophen 650 MG Q6P PRN 11/01 2300 AC 11/02 PO 0046 Amlodipine Besylate 10 MG DAILY 11/02 1000 AC 11/03 PO 0846 Atenolol 50 MG DAILY 11/02 1000 AC 11/03 PO 0846 Bisacodyl 10 MG DAILY NEEDED PRN 11/03 0815 AC [place] Cefazolin Sodium 2 GM Q8H 11/03 0100 DC 11/03 N/A 1 UNIT IV 11/03 0929 0814 Cholecalciferol 1,000 IU DAILY 11/02 1000 AC 11/03 PO 0846 Enoxaparin Sodium 40 MG DAILY 11/03 1000 AC 11/03 SC 0846 Fentanyl Citrate 250 MCG .STK-MED ONE 11/02 1549 DC IM 11/02 1550 Fentanyl Citrate 100 MCG .STK-MED ONE 11/02 1535 DC IM 11/02 1536 Heparin Sodium 5,000 UNIT Q8 11/02 0600 DC 11/02 (Porcine) SC 0536 Midazolam HCl 2 MG .STK-MED ONE 11/02 1535 DC IM 11/02 1536 Morphine Sulfate 2 MG Q8P PRN 11/02 0900 AC IV Oxycodone HCl 5 MG Q6 PRN 11/03 1030 UNVr PO Oxycodone/ 1 TAB Q6P PRN 11/01 2300 DC Acetaminophen PO Polyethylene Glycol 17 GM DAILY 11/03 1000 AC 11/03 PO 0846 Pravastatin Sodium 40 MG 1700 11/02 1700 AC 11/02 PO 2125 Senna/Docusate Sodium 1 TAB BID 11/02 2200 AC 11/03 PO 0846 Sodium Chloride 1,000 ML Q13H 11/02 0900 AC 11/02 IV 11/03 1059 2129 Tranexamic Acid 2,000 MG .STK-MED ONE 11/02 1534 DC IV 11/02 1535 Last 24 Hrs of Lab/Edinson Results Last 24 Hrs of Labs/Mics: Laboratory Tests 11/03/17 0651: Anion Gap 10, Estimated GFR > 60, BUN/Creatinine Ratio 22.0, CBC w Diff NO MAN DIFF REQ, RBC 4.08 L, MCV 92.1, MCH 30.5, MCHC 33.1, RDW 12.9, MPV 9.1, Gran % 85.8 H, Lymphocytes % 6.8 L, Monocytes % 6.6, Eosinophils % 0.7, Basophils % 0.1, Absolute Granulocytes 7.8 H, Absolute Lymphocytes 0.6 L, Absolute Monocytes 0.6, Absolute Eosinophils 0.1, Absolute Basophils 0 Assessment/Plan Assessment: 72-year-old woman with long-standing history of osteoporosis presented to [facility] ED after sustaining a mechanical fall, underwent left hip open reduction and internal fixation yesterday. 1. Impacted left femoral neck fracture. Stop fluids. Encourage oral intake. Pain controlled with Tylenol [id number] for 4 doses. Bowel regimen. Wean off oxygen. 2. Hypertension. Continue beta gutierrez and calcium channel gutierrez. 3. Hyperlipidemia. Continue atorvastatin. Disposition. Short-term rehabilitation. Full code. Heparin for DVT prophylaxis. Nothing by mouth. Problem List: 1. Closed left hip fracture Pain Ratin Pain Location: Left hip Pain Goal: Remain pain free Pain Plan: Tylenol [id number] Tomorrow's Labs & Rationales: Postop CBC. Ej West 11/03/17 1529: Attending MD Review Statement Attending Statement Attending MD Statement: examined this patient, discuss w/resident/PA/DOUGHNUT GLAZIER, agreed w/resident/PA/DOUGHNUT GLAZIER, reviewed EMR data (avail), discussed with nursing, discussed with case mgmt Attending Assessment/Plan: agree with the above assessment and plan. Pt is Non weight bearing for 2 weeks. No was swelling left side of hip. will get repeat cbc and f/u on that to make sure no internal bleeding or hematoma at site of surgery. d/w pt and pts significant other at bedside and case management the disposition. will work on getting her to Rehab.
[2017-11-03 14:12] VITALS: BP 100/58
--- NOTE | 2017-11-03 14:52 | Event Note ---
Event Note Event Note: Called by RN regarding swelling to left hip. Patient is POD #1 s/p CRPP. Patient states over the last two hours she noticed the swelling and increasing pain. No dizziness or lightheadness. Hypotensive into 100s, earlier was in 120-130s. Not tachycardic. On exam, moderate to large hematoma noted superior to CRPP incision. Small strikethrough noted to dressing. No pulsatile mass noted. Likely a post op hematoma, less likely a pseudoaneurysm. Will order CBC, and ensure a current type and screen is ordered. Medicine made aware of situation and labwork. May need prbc.
[2017-11-03 15:51] LABS: ABSOLUTE BASOPHIL COUNT 0 /CUMM (0.0-0.2); ABSOLUTE EOSINOPHIL COUNT 0.3 /CUMM (0.0-0.7); ABSOLUTE GRANULOCYTE CT 8.4 /CUMM (1.4-6.5); ABSOLUTE LYMPH COUNT 1.4 /CUMM (1.2-3.4); ABSOLUTE MONOCYTE COUNT 0.8 /CUMM (0.10-0.60); BASOPHIL % 0.1 % (0.0-2.0); EOSINOPHIL % 2.8 % (0-5); GRANULOCYTE % 76.6 % (42.2-75.2); MEAN CORPUSCULAR HGB 30.2 PG (27.0-31.0); MEAN CORPUSCULAR HGB CONC 32.7 G/DL (33.0-37.0); MEAN CORPUSCULAR VOLUME 92.4 FL (81.0-99.0); MEAN PLATELET VOLUME 8.3 FL (7.4-10.4); PLATELET COUNT 215 /CUMM (130-400); RBC DISTRIBUTION WIDTH 13.1 % (11.5-14.5); RED BLOOD CELL CT 3.48 /CUMM (4.20-5.40)
[2017-11-03 15:52] LABS: HEMATOCRIT 32.1 % (37-47)
--- NOTE | 2017-11-03 15:52 | Patient Discharge Instructions ---
Discharge Instructions General Discharge Information You were seen/treated for: Left femoral neck fracture Watch for these problems: Worsening swelling of the surgical site. Worsening pain of the surgical site. Dropping blood pressure, fast heart rate. Lightheadedness dizziness. Special Instructions: Please follow-up with orthopedic surgery as an outpatient per Please follow-up with primary care physician as an outpatient. Please check labs CBC on 11/13/17 for H&H (cc results to Dr. Oliver and Dr. Kolb). Last H&H, 9.10/31.2 (11/07/17). Diet Continue normal diet: Yes Activity Activity Self Limited: Yes Acute Coronary Syndrome Inclusion Criteria At DC or during hospital stay patient has or had the following: ACS DIAGNOSIS No Discharge Core Measures Meds if any: Prescribed or Continued at Discharge Meds if any: NOT Prescribed or Continued at Discharge Congestive Heart Failure Inclusion Criteria At DC or during hospital stay patient has or had the following: CHF DIAGNOSIS No Discharge Core Measures Meds if any: Prescribed or Continued at Discharge Meds if any: NOT Prescribed or Continued at Discharge Cerebrovascular accident Inclusion Criteria At DC or during hospital stay patient has or had the following: CVA/TIA Diagnosis No Discharge Core Measures Meds if any: Prescribed or Continued at Discharge Meds if any: NOT Prescribed or Continued at Discharge Venous thromboembolism Inclusion Criteria VTE Diagnosis No VTE Type NONE VTE Confirmed by (Test) NONE Discharge Core Measures - Per Current guidelines, there needs to be overlap - treatment for the first 5 days of Warfarin therapy. - If discharged on Warfarin prior to 5 days of - overlap therapy, the patient will need to be - assessed for post discharge needs including - *Post discharge parental anticoagulation - *Warfarin and/or parental anticoagulation education - *Follow up date to check INR post discharge At least 5 days overlap therapy as Inpatient No Meds if any: Prescribed or Continued at Discharge Note: Overlap Therapy is Warfarin and Anticoagulant Meds if any: NOT Prescribed or Continued at Discharge
--- NOTE | 2017-11-03 16:03 | Discharge Summary ---
See Addendum Visit Information Visit Dates Admission Date: 11/01/17 Discharge Date: 11/07/2017 Hospital Course Course Attending Physician: Nga Otero MD Primary Care Physician: Keira Oliver MD Hospital Course: 72-year-old woman with hypertension, hyperlipidemia, osteoporosis, COPD presented to [facility] ED after sustaining a mechanical fall resulting in left femoral neck fracture. She denied any head strike or loss of consciousness at the time. In the ED she was afebrile, heart rate in 70s, blood pressure 1:30/61 and saturating well on room air. Her physical exam was significant for internally rotated left leg, with no bruises or tenderness on left upper extremity, elbow or shoulder. Chest x-ray was obtained that revealed no acute disease. Hip and pelvic x-ray revealed acute, impacted left subcapital femoral neck fracture. Patient was admitted to general medicine floors, and orthopedic was consulted. Patient was planned for orthopedic surgery on the second day of admission. Patient underwent an uneventful open reduction and internal fixation after risk stratification. Patient tolerated the procedure well. On postop day 1, patient was noticed to have swelling and increasing pain at the surgical site. Her vitals at the time revealed blood pressure of 100/60, but no tachycardia. Patient was evaluated by orthopedic team and patient was found to have a moderate to large hematoma underneath the surgical site. In the interim, Lovenox was held for DVT prophylaxis. ASA was started, which was held on discharge because of known h/o PUD. CBC results showed hemoglobin at 10.5. She remained hemodynamically stable and was closely monitored. Her H and H stayed stable at 9.2 upon discharge. Hematoma resolved. Surgery recommeded conservative management with Non weighring to affected extremity x 2 weeks. Ice application and leg elevation. Patient remains stable to be discharged to short-term rehabilitation on 2017. Full code. Heart healthy diet. Complications: Postop hematoma. Allergies: Coded Allergies: celecoxib (From CELEBREX) (Severe, RASH, HIVES 01/13/16) Sulfa (Sulfonamide Antibiotics) (RASH, HIVES 01/13/16) codeine (N/V/D 01/13/16) Disposition Summary Disposition Principal Diagnosis: Left femoral neck fracture. Additional Diagnosis: Postop hematoma Discharge Disposition: SNF Discharge Instructions General Discharge Information Code Status: Full Code Patient's Diet: Heart healthy diet. Patient's Activity: Discharge short-term rehabilitation, return to baseline work with physical therapy. Follow-Up Instructions/Appts: Please follow-up with primary care physician as an outpatient 1-2. Please follow-up with orthopedic surgery as an outpatient in 1-2 weeks. Medications at Discharge Discharge Medications: Continue taking these medications: Amlodipine Besylate (Norvasc) 10 MG TABLET 1 Tablet ORAL DAILY Comments: Last Taken: 11/07/17 Time: 9:00 AM Atenolol (Tenormin) 50 MG TABLET 1 Tablet ORAL DAILY Comments: Last Taken: 11/07/17 Time: 9:00 AM Calcium Carbonate/Vitamin D3 (Caltrate 600 + D Tablet) 1 EACH TABLET 1 Tablet ORAL DAILY Comments: NOT GIVEN IN HOSPITAL Cetirizine HCl (Zyrtec) 10 MG TABLET 1 Tablet ORAL as needed for ALLERGIES Comments: NOT GIVEN IN HOSPITAL Cyanocobalamin (Vitamin B-12) 1,000 MCG TABLET 1 Tablet ORAL DAILY Comments: NOT GIVNE IN HOSPITAL Denosumab (Prolia) 60 MG/1 ML SYRINGE 60 Milligram INJECTABLE Q6M Comments: NOT GIVEN IN HOSPITAL Multivit-Min/FA/Lycopen/Lutein (Centrum Silver Tablet) 1 EACH TABLET 1 Tablet ORAL DAILY Comments: NOT GIVEN IN HOSPITAL Iuka-3S/Dha/Epa/Fish Oil (Fish Oil 1,200 MG Softgel) 1 EACH CAPSULE 1 Capsule ORAL DAILY Comments: NOT GIVEN IN HOSPITAL Cholecalciferol (Vitamin D3) (Vitamin D) 2,000 UNIT TABLET 1 Tablet ORAL DAILY Comments: Last Taken: 11/07/17 Time: 9:00 AM Vitamin E Acetate (Vitamin E) 200 UNIT CAPSULE 1 Capsule ORAL DAILY Comments: NOT GIVEN IN HOSPTIAL Potassium Gluconate (Potassium) 595 MG (99 MG) TABLET 1 Tablet ORAL DAILY Comments: NOT GIVEN HOSPITAL Tramadol HCl (Tramadol HCl) 50 MG TABLET 1-2 Tablet ORAL DAILY Comments: NOT GIVEN HOSPITAL Pravastatin Sodium (Pravastatin Sodium) 40 MG TABLET 1 Tablet ORAL DAILY Start taking the following new medications: Acetaminophen (Acetaminophen) 500 MG TABLET 500 Milligram ORAL EVERY SIX HOURS as needed for PAIN Days = 30 No Refills Comments: Last Taken: 11/07/17 Time: 11:00 AM Copies To: Nga Otero MD; Melody CHRIS,Keira Stein; Cortes CHRIS,Arben Perdomo Attending MD Review Statement Documenting Attending: Nga Otero MD Other Findings: Agree with above. Please make sure to see the addendum by . Bilateral lower extremity venous Doppler Ultrasound results were called back to Dr. Villaseñor and those were reported to be negative. Patient will follow-up with orthopedic as an outpatient.
[2017-11-03 18:21] VITALS: BP 98/56
[2017-11-03 22:09] VITALS: BP 104/60
[2017-11-04 02:19] LABS: ABSOLUTE BASOPHIL COUNT 0 /CUMM (0.0-0.2); ABSOLUTE EOSINOPHIL COUNT 0.3 /CUMM (0.0-0.7); ABSOLUTE GRANULOCYTE CT 7.9 /CUMM (1.4-6.5); ABSOLUTE LYMPH COUNT 1.4 /CUMM (1.2-3.4); ABSOLUTE MONOCYTE COUNT 0.7 /CUMM (0.10-0.60); BASOPHIL % 0.1 % (0.0-2.0); EOSINOPHIL % 2.7 % (0-5); GRANULOCYTE % 76.3 % (42.2-75.2); HEMATOCRIT 29.5 % (37-47); MEAN CORPUSCULAR HGB 30.4 PG (27.0-31.0); MEAN CORPUSCULAR HGB CONC 33.2 G/DL (33.0-37.0); MEAN CORPUSCULAR VOLUME 91.6 FL (81.0-99.0); MEAN PLATELET VOLUME 9.1 FL (7.4-10.4); PLATELET COUNT 179 /CUMM (130-400); RBC DISTRIBUTION WIDTH 12.9 % (11.5-14.5); RED BLOOD CELL CT 3.23 /CUMM (4.20-5.40); WHITE BLOOD CELL COUNT 10.3 /CUMM (4.8-10.8)
[2017-11-04 05:42] VITALS: BP 100/60
[2017-11-04 08:43] LABS: ABSOLUTE BASOPHIL COUNT 0 /CUMM (0.0-0.2); ABSOLUTE EOSINOPHIL COUNT 0.4 /CUMM (0.0-0.7); ABSOLUTE GRANULOCYTE CT 7.8 /CUMM (1.4-6.5); ABSOLUTE LYMPH COUNT 1.4 /CUMM (1.2-3.4); ABSOLUTE MONOCYTE COUNT 0.9 /CUMM (0.10-0.60); BASOPHIL % 0.4 % (0.0-2.0); EOSINOPHIL % 3.6 % (0-5); GRANULOCYTE % 74.8 % (42.2-75.2); HEMATOCRIT 31.4 % (37-47); MEAN CORPUSCULAR HGB 30.6 PG (27.0-31.0); MEAN CORPUSCULAR HGB CONC 33.3 G/DL (33.0-37.0); MEAN CORPUSCULAR VOLUME 91.9 FL (81.0-99.0); MEAN PLATELET VOLUME 8.8 FL (7.4-10.4); PLATELET COUNT 209 /CUMM (130-400); RBC DISTRIBUTION WIDTH 13.2 % (11.5-14.5); RED BLOOD CELL CT 3.41 /CUMM (4.20-5.40); WHITE BLOOD CELL COUNT 10.5 /CUMM (4.8-10.8)
[2017-11-04 08:54] LABS: PT 11.2 SEC (9.4-12.5)
--- NOTE | 2017-11-04 09:07 | PN- Housestaff ---
Srikanth CHRIS,Krish 11/04/17 0906: Subjective Follow-up For: Hip repair Hematoma Subjective: Seen and examined at bedside. She does not endorse any new acute complaints. [place] any fever, chills, nausea, vomiting, shortness of breath, cough, chest pain , palpitation, increased lower extremity pain. No acute overnight event reported by nursing staff. Review of Systems Constitutional: Denies: see HPI. Objective Last 24 Hrs of Vital Signs/I&O Vital Signs Date Time Temp Pulse Resp B/P B/P Pulse O2 O2 Flow FiO2 Mean Ox Delivery Rate 11/04 1350 99.0 73 18 100/60 93 11/04 1048 72 100/60 11/04 1047 72 100/60 11/04 0542 98.0 72 20 100/60 93 Room Air 11/03 2209 97.9 62 20 104/60 97 Intake & Output 11/04 1600 11/04 0800 11/04 0000 Intake Total 620 600 Output Total 600 325 300 Balance 20 -325 300 Intake, Oral 620 600 Number 4 Bowel Movements Output, Urine 600 325 300 Physical Exam General Appearance: Alert, Oriented X3, Cooperative Other Physical Findings: Cardiovascular: Regular Rate, Normal S1, Normal S2 Lungs: Clear to Auscultation, Normal Air Movement Abdomen: Normal Bowel Sounds, Soft, No Tenderness Extremities: No Clubbing, No Cyanosis, No Edema Vascular: Normal Pulses, Pulses Symmetrical Last 24 Hrs of Lab/Edinson Results Last 24 Hrs of Labs/Mics: Laboratory Tests 11/04/17 1751: CBC w Diff NO MAN DIFF REQ, RBC 3.33 L, MCV 92.0, MCH 30.3, MCHC 33.0, RDW 13.0 , MPV 9.2, Gran % 75.3 H, Lymphocytes % 12.5 L, Monocytes % 8.5, Eosinophils % 3.4, Basophils % 0.3, Absolute Granulocytes 8.0 H, Absolute Lymphocytes 1.3, Absolute Monocytes 0.9 H, Absolute Eosinophils 0.4, Absolute Basophils 0 11/04/17 0644: Anion Gap 8, Estimated GFR > 60, BUN/Creatinine Ratio 18.6, PT 11.2, INR 1.07, CBC w Diff NO MAN DIFF REQ, RBC 3.41 L, MCV 91.9, MCH 30.6, MCHC 33.3, RDW 13.2 , MPV 8.8, Gran % 74.8, Lymphocytes % 12.9 L, Monocytes % 8.3, Eosinophils % 3.6, Basophils % 0.4, Absolute Granulocytes 7.8 H, Absolute Lymphocytes 1.4, Absolute Monocytes 0.9 H, Absolute Eosinophils 0.4, Absolute Basophils 0 11/04/17 0130: CBC w Diff NO MAN DIFF REQ, RBC 3.23 L, MCV 91.6, MCH 30.4, MCHC 33.2, RDW 12.9 , MPV 9.1, Gran % 76.3 H, Lymphocytes % 13.7 L, Monocytes % 7.2, Eosinophils % 2.7, Basophils % 0.1, Absolute Granulocytes 7.9 H, Absolute Lymphocytes 1.4, Absolute Monocytes 0.7 H, Absolute Eosinophils 0.3, Absolute Basophils 0 Assessment/Plan Assessment: 72-year-old lady postoperative day 2 status post left hip repair due to femoral neck fracture, developed hematoma previous day but now is resolving with hemoglobin stable. Impression Left femoral neck fracture repair History of hypertension Hyperlipidemia Plan Hematoma seems to be resolving with stable H&H CBC tomorrow morning Continue beta gutierrez and calcium channel gutierrez Continue atorvastatin for hyperlipidemia Pain management per pathway Disposition: Once medically stable patient be discharged to posterior Problem List: 1. Closed left hip fracture Pain Ratin Pain Location: Lower extremity Pain Goal: Remain pain free Pain Plan: Per pathway Tomorrow's Labs & Rationales: Blas Khan MD 11/05/17 0016: Attending MD Review Statement Attending Statement Attending MD Statement: examined this patient, discuss w/resident/PA/GIZZARD SKIN REMOVER, agreed w/resident/PA/GIZZARD SKIN REMOVER, reviewed EMR data (avail), discussed with nursing, reviewed images, amended to note Attending Assessment/Plan: The patient was seen and discussed with house staff. Agree with the plan of care as above.
--- NOTE | 2017-11-04 12:50 | PN- Orthopedic ---
See Addendum Subjective Subjective: Patient reports thigh discomfort due to her hematoma. She states she pain was aggrevated when she was getting oob to chair today. She reports decreased appetite. Pain currently controlled. She reprots itching from her incision. Salcedo remains in place Objective Vital Signs and I&Os Vital Signs Date Time Temp Pulse Resp B/P B/P Pulse O2 O2 Flow FiO2 Mean Ox Delivery Rate 11/04 1350 99.0 73 18 100/60 93 11/04 1048 72 100/60 11/04 1047 72 100/60 11/04 0542 98.0 72 20 100/60 93 Room Air 11/03 2209 97.9 62 20 104/60 97 11/03 1821 64 98/56 Intake & Output 11/04 1600 11/04 0800 11/04 0000 11/03 1600 11/03 0800 11/03 0000 Intake Total 363 942 8295 840 240 Output Total 600 325 567 354 0834 Balance 20 -325 300 350 840 -1560 Intake, IV 300 600 Intake, Oral 620 600 800 240 240 Number 4 Bowel Movements Output, Urine 600 325 719 298 6242 Physical Exam: Gen - resting comfortably awake and alert in NAD Ext - L hip dressing mildly saturated with ss draiange, incision closed with araceli healing well with no signs of infection, no bleeding noted, mild thigh swelling, redressed with gauze and paper tape, soft compartment and appropriately tender, nvi, no significant edema or calf tenderness Current Medications: Current Medications Sig/Glo Start time Last Medication Dose Route Stop Time Status Admin Acetaminophen 650 MG .STK-MED ONE 11/04 0147 DC PO 11/04 0148 Acetaminophen 500 MG Q6 11/03 0847 AC 11/04 PO 1301 Acetaminophen 650 MG Q6P PRN 11/01 2300 AC 11/04 PO 0149 Amlodipine Besylate 10 MG DAILY 11/02 1000 AC 11/04 PO 1047 Atenolol 50 MG DAILY 11/02 1000 AC 11/04 PO 1048 Bisacodyl 10 MG DAILY NEEDED PRN 11/03 0815 AC DC Cholecalciferol 1,000 IU DAILY 11/02 1000 AC 11/04 PO 1048 Enoxaparin Sodium 40 MG DAILY 11/03 1000 AC 11/04 SC 1046 Morphine Sulfate 2 MG Q8P PRN 11/02 0900 AC IV Ondansetron HCl 4 MG Q6P PRN 11/03 1515 AC 11/03 IV 1510 Oxycodone HCl 5 MG Q6 PRN 11/03 1030 AC 11/03 PO 1159 Polyethylene Glycol 17 GM DAILY 11/03 1000 AC 11/04 PO 1045 Pravastatin Sodium 40 MG 1700 11/02 1700 AC 11/03 PO 1726 Senna/Docusate Sodium 1 TAB BID 11/02 2200 AC 11/04 PO 1301 Results Last 48 Hours of Labs: Laboratory Tests 11/04 11/04 0644 0130 Chemistry Sodium (137 - 145 mmol/L) 138 Potassium (3.5 - 5.1 mmol/L) 4.2 Chloride (98 - 107 mmol/L) 103 Carbon Dioxide (22 - 30 mmol/L) 27 Anion Gap (5 - 16) 8 BUN (7 - 17 mg/dL) 13 Creatinine (0.5 - 1.0 mg/dL) 0.7 Estimated GFR (>60 ml/min) > 60 BUN/Creatinine Ratio (7 - 25 %) 18.6 Coagulation PT (9.4 - 12.5 SEC) 11.2 INR (0.90 - 1.19) 1.07 Hematology CBC w Diff NO MAN DIFF REQ NO MAN DIFF REQ WBC (4.8 - 10.8 /CUMM) 10.5 10.3 RBC (4.20 - 5.40 /CUMM) 3.41 L 3.23 L Hgb (12.0 - 16.0 G/DL) 10.4 L 9.8 L Hct (37 - 47 %) 31.4 L 29.5 L MCV (81.0 - 99.0 FL) 91.9 91.6 MCH (27.0 - 31.0 PG) 30.6 30.4 MCHC (33.0 - 37.0 G/DL) 33.3 33.2 RDW (11.5 - 14.5 %) 13.2 12.9 Plt Count (130 - 400 /CUMM) 209 179 MPV (7.4 - 10.4 FL) 8.8 9.1 Gran % (42.2 - 75.2 %) 74.8 76.3 H Lymphocytes % (20.5 - 51.1 %) 12.9 L 13.7 L Monocytes % (1.7 - 9.3 %) 8.3 7.2 Eosinophils % (0 - 5 %) 3.6 2.7 Basophils % (0.0 - 2.0 %) 0.4 0.1 Absolute Granulocytes (1.4 - 6.5 /CUMM) 7.8 H 7.9 H Absolute Lymphocytes (1.2 - 3.4 /CUMM) 1.4 1.4 Absolute Monocytes (0.10 - 0.60 /CUMM) 0.9 H 0.7 H Absolute Eosinophils (0.0 - 0.7 /CUMM) 0.4 0.3 Absolute Basophils (0.0 - 0.2 /CUMM) 0 0 03/02 03/02 1535 0651 Chemistry Sodium (137 - 145 mmol/L) 142 Potassium (3.5 - 5.1 mmol/L) 3.9 Chloride (98 - 107 mmol/L) 108 H Carbon Dioxide (22 - 30 mmol/L) 24 Anion Gap (5 - 16) 10 BUN (7 - 17 mg/dL) 11 Creatinine (0.5 - 1.0 mg/dL) 0.5 Estimated GFR (>60 ml/min) > 60 BUN/Creatinine Ratio (7 - 25 %) 22.0 Hematology CBC w Diff NO MAN DIFF REQ NO MAN DIFF REQ WBC (4.8 - 10.8 /CUMM) 11.0 H 9.1 RBC (4.20 - 5.40 /CUMM) 3.48 L 4.08 L Hgb (12.0 - 16.0 G/DL) 10.5 L 12.4 Hct (37 - 47 %) 32.1 L 37.6 MCV (81.0 - 99.0 FL) 92.4 92.1 MCH (27.0 - 31.0 PG) 30.2 30.5 MCHC (33.0 - 37.0 G/DL) 32.7 L 33.1 RDW (11.5 - 14.5 %) 13.1 12.9 Plt Count (130 - 400 /CUMM) 215 180 MPV (7.4 - 10.4 FL) 8.3 9.1 Gran % (42.2 - 75.2 %) 76.6 H 85.8 H Lymphocytes % (20.5 - 51.1 %) 12.9 L 6.8 L Monocytes % (1.7 - 9.3 %) 7.6 6.6 Eosinophils % (0 - 5 %) 2.8 0.7 Basophils % (0.0 - 2.0 %) 0.1 0.1 Absolute Granulocytes (1.4 - 6.5 /CUMM) 8.4 H 7.8 H Absolute Lymphocytes (1.2 - 3.4 /CUMM) 1.4 0.6 L Absolute Monocytes (0.10 - 0.60 /CUMM) 0.8 H 0.6 Absolute Eosinophils (0.0 - 0.7 /CUMM) 0.3 0.1 Absolute Basophils (0.0 - 0.2 /CUMM) 0 0 Assessment/Plan Assessment/Plan 72 F POD 2 s/p L hip pinning secondary to left femoral neck fracture, hematoma resolving Cont PT, nwb x 2 weeks Pain meds prn Cont dry dressing changes daily DVT ppx - lovenox 40 sq May start oral anticoagulation for 4 weeks duration and dc lovenox when medicine deems appropriate F/u in [address] Kolb Will d/w Dr. Kolb
[2017-11-04 13:50] VITALS: BP 100/60
[2017-11-04 18:44] LABS: ABSOLUTE BASOPHIL COUNT 0 /CUMM (0.0-0.2); ABSOLUTE EOSINOPHIL COUNT 0.4 /CUMM (0.0-0.7); ABSOLUTE LYMPH COUNT 1.3 /CUMM (1.2-3.4); ABSOLUTE MONOCYTE COUNT 0.9 /CUMM (0.10-0.60); BASOPHIL % 0.3 % (0.0-2.0); EOSINOPHIL % 3.4 % (0-5); GRANULOCYTE % 75.3 % (42.2-75.2); HEMATOCRIT 30.6 % (37-47); MEAN CORPUSCULAR HGB 30.3 PG (27.0-31.0); MEAN PLATELET VOLUME 9.2 FL (7.4-10.4); PLATELET COUNT 214 /CUMM (130-400); RED BLOOD CELL CT 3.33 /CUMM (4.20-5.40); WHITE BLOOD CELL COUNT 10.7 /CUMM (4.8-10.8)
[2017-11-04 22:22] VITALS: BP 106/52
--- NOTE | 2017-11-05 | Event Note ---
Event Note Event Note: Called by nursing regarding pt complaining of left thigh pain increased suddenly from prior. On evaluation Pt states that she was repositioned in bed and shortly thereafter felt a sudden increase in left thigh pain to what she describes as an 11 out of 10. She was given 2mg morphine and it is currently 7/10. She has a known thigh hematoma following a fracture and subsequent pinning. Her left thigh reveals swelling anterior to the incision on the upper thigh which is tender/soft, no discoloration Dressing was removed and the incision looks good without any drainage or bleeding. The rest of the thigh is soft and nontender. She is normosensate throughout the entire extremitly There is no calf tenderness Good 2+ DP It does not appear to be compartment syndrome. Recommend ice/elevation/pain management Will follow
[2017-11-05 05:53] VITALS: BP 104/56
[2017-11-05 06:48] VITALS: BP 132/78
[2017-11-05 08:57] LABS: ABSOLUTE BASOPHIL COUNT 0 /CUMM (0.0-0.2); ABSOLUTE EOSINOPHIL COUNT 0.2 /CUMM (0.0-0.7); ABSOLUTE GRANULOCYTE CT 8.3 /CUMM (1.4-6.5); ABSOLUTE LYMPH COUNT 1.1 /CUMM (1.2-3.4); BASOPHIL % 0.3 % (0.0-2.0); EOSINOPHIL % 1.6 % (0-5); HEMATOCRIT 26.5 % (37-47); MEAN CORPUSCULAR HGB 30.5 PG (27.0-31.0); MEAN CORPUSCULAR HGB CONC 33.3 G/DL (33.0-37.0); MEAN CORPUSCULAR VOLUME 91.7 FL (81.0-99.0); MEAN PLATELET VOLUME 8.6 FL (7.4-10.4); PLATELET COUNT 227 /CUMM (130-400); RBC DISTRIBUTION WIDTH 13.2 % (11.5-14.5); RED BLOOD CELL CT 2.89 /CUMM (4.20-5.40); WHITE BLOOD CELL COUNT 10.7 /CUMM (4.8-10.8)
--- NOTE | 2017-11-05 10:31 | PN- Housestaff ---
See Addendum Subjective Follow-up For: lft hip femoral neck fracture Subjective: No overnight events. She feels ok this morning, better than yesterday. Was able to get into chair yesterday. No CP or SOB. Review of Systems Constitutional: Reports: no symptoms. EENTM: Reports: no symptoms. Cardiovascular: Reports: no symptoms. Respiratory: Reports: no symptoms. Gastrointestinal: Reports: no symptoms. Genitourinary: Reports: no symptoms. Musculoskeletal: Reports: see HPI. Skin: Reports: no symptoms. Neurological/Psychological: Reports: no symptoms. Hematologic/Endocrine: Reports: no symptoms. Immunologic/Allergic: Reports: no symptoms. Objective Last 24 Hrs of Vital Signs/I&O Vital Signs Date Time Temp Pulse Resp B/P B/P Pulse O2 O2 Flow FiO2 Mean Ox Delivery Rate 11/05 0940 79 132/78 11/05 0939 79 132/78 11/05 0648 98.3 79 20 132/78 93 Room Air 11/05 0553 98.3 85 20 104/56 92 Room Air 11/04 2222 99.2 73 18 106/52 95 Room Air 11/04 1350 99.0 73 18 100/60 93 / 1048 72 100/60 03/ 1047 72 100/60 Intake & Output 11/05 1600 11/05 0800 11/05 0000 Intake Total Output Total 200 1800 Balance -200 -1800 Output, Urine 200 1800 Physical Exam General Appearance: Alert, Oriented X3, Cooperative, No Acute Distress HEENT: Atraumatic Cardiovascular: Regular Rate, Normal S1, Normal S2 Lungs: Clear to Auscultation Abdomen: Normal Bowel Sounds, Soft, No Tenderness Extremities: deferred Vascular: Normal Pulses Current Medications: Current Medications Sig/Glo Start time Last Medication Dose Route Stop Time Status Admin Acetaminophen 650 MG .STK-MED ONE 11/05 2051 DC PO 11/04 2052 Acetaminophen 500 MG Q6 11/03 0847 AC 11/05 PO 611 Acetaminophen 650 MG Q6P PRN 11/01 2300 AC 11/04 PO 2052 Amlodipine Besylate 10 MG DAILY 11/02 1000 AC 11/05 PO 0939 Atenolol 50 MG DAILY 11/02 1000 AC 11/05 PO 0940 Bisacodyl 10 MG DAILY NEEDED PRN 11/03 0815 AC MT Cholecalciferol 1,000 IU DAILY 11/02 1000 AC 11/05 PO 0940 Enoxaparin Sodium 40 MG DAILY 11/03 1000 AC 11/05 SC 0938 Hydromorphone HCl 4 MG .STK-MED ONE 11/04 1307 DC PO 11/04 1308 Morphine Sulfate 2 MG ONCE ONE 11/04 2345 DC 11/05 IV 11/04 2346 0008 Morphine Sulfate 2 MG Q8P PRN 11/02 0900 AC 11/04 IV 2155 Ondansetron HCl 4 MG Q6P PRN 11/03 1515 AC 11/03 IV 1510 Oxycodone HCl 5 MG Q6 PRN 11/03 1030 AC 11/03 PO 1159 Polyethylene Glycol 17 GM DAILY 11/03 1000 AC 11/04 PO 1045 Pravastatin Sodium 40 MG 1700 11/02 1700 AC 11/04 PO 1745 Senna/Docusate Sodium 1 TAB BID 11/02 2200 AC 11/04 PO 2156 Last 24 Hrs of Lab/Edinson Results Last 24 Hrs of Labs/Mics: Laboratory Tests 11/05/17 0717: CBC w Diff NO MAN DIFF REQ, RBC 2.89 L, MCV 91.7, MCH 30.5, MCHC 33.3, RDW 13.2 , MPV 8.6, Gran % 78.0 H, Lymphocytes % 10.7 L, Monocytes % 9.4 H, Eosinophils % 1.6, Basophils % 0.3, Absolute Granulocytes 8.3 H, Absolute Lymphocytes 1.1 L, Absolute Monocytes 1.0 H, Absolute Eosinophils 0.2, Absolute Basophils 0 11/04/17 1751: CBC w Diff NO MAN DIFF REQ, RBC 3.33 L, MCV 92.0, MCH 30.3, MCHC 33.0, RDW 13.0 , MPV 9.2, Gran % 75.3 H, Lymphocytes % 12.5 L, Monocytes % 8.5, Eosinophils % 3.4, Basophils % 0.3, Absolute Granulocytes 8.0 H, Absolute Lymphocytes 1.3, Absolute Monocytes 0.9 H, Absolute Eosinophils 0.4, Absolute Basophils 0 Assessment/Plan Assessment: 72-year-old lady postoperative day 2 status post left hip repair due to femoral neck fracture, developed hematoma previous day but now is resolving with hemoglobin stable. Problem List: Left femoral neck fracture repair postoperative day 3 History of hypertension Hyperlipidemia Plan Patient says she developed another hematoma. Hemoglobin is downtrending. CBCs at 1800. Hemoglobin goal greater than 7 Appreciate orthopedic recs Continue beta gutierrez and calcium channel gutierrez Continue atorvastatin for hyperlipidemia Pain management per pathway Full code Problem List: 1. Closed left hip fracture Pain Ratin Pain Location: hip Pain Goal: Remain pain free Pain Plan: see a/p Tomorrow's Labs & Rationales: cbc
--- NOTE | 2017-11-05 11:49 | PN- Orthopedic ---
See Addendum Subjective Subjective: PT IN BED, COMPLAINS OF PAIN WHEN MOVING LEFT LEG, ALSO SAYS SWELLING HAS INCREASED AROUND OPERATIVE SITE. WORKED WITH PT IN BED TODAY FOR FEAR OF AGRIVATING LEFT HIP. DENIES PARESTHESIAS. DENIES CP/SOB, MUNOZ, OR LIGHT HEADNESS Objective Vital Signs and I&Os Vital Signs Date Time Temp Pulse Resp B/P B/P Pulse O2 O2 Flow FiO2 Mean Ox Delivery Rate 11/05 0940 79 132/78 03/ 0939 79 132/78 / 0648 98.3 79 20 132/78 93 Room Air / 0553 98.3 85 20 104/56 92 Room Air 11/04 2222 99.2 73 18 106/52 95 Room Air 11/04 1350 99.0 73 18 100/60 93 Intake & Output 11/05 1600 / 0800 /04 0000 / 1600 11/04 0800 11/04 0000 Intake Total 620 600 Output Total 200 1800 600 325 300 Balance -200 -1800 20 -325 300 Intake, Oral 620 600 Number 4 Bowel Movements Output, Urine 200 1800 600 325 300 Physical Exam: GEN-NAD RESP- CLEAR CARDIO-RRR ABD- SOFT NONTENDER EXT- LEFT HIP WITH SWELLING ANTERIORLY, TENDER TO TOUCH, WARM. ECCHYMOSIS AROUND OP SITE. SELINA IN PLACE, SOME SEROSANG DRAINAGE ON DRESSING. UNABLE TO EXPRESS ANYTHING FROM WOUND. CLEAN DRESSING APPLIED. DISTAL SENSORY AND MOTOR FUNCTION INTACT. NO CALF TENDERNESS. NEG HOMANS SIGN Assessment/Plan Assessment/Plan 72YO F SP LEFT HIP PINNING POD3 FOR FRACTURE NOW LIKELY WITH HEMATOMA. REC NON- SURGICAL MANAGEMENT OF HEMATOMA WITH ICE AND ELEVATION. REC ICE TO ANTERIOR AND LATERAL LEFT HIP. DECREASE IN HEMOGLOBIN AND HEMATOCRIT, CONT TO TREND. PT DOES NOT SEEM TO BE SYMPTOMATIC AT THIS TIME CONT PHYSICAL THERAPY- NWB FOR [address] JEFFERS TO SEE PATIENT THIS AFTERNOON Core Measures Venous Thromboembolism VTE Risk Factors Trauma No Mechanical VTE Prophylaxis d/t N/A MechProphylax Ordered No VTE Pharm Prophylaxis d/t Surgical Contraindication
[2017-11-05 13:58] VITALS: BP 100/56
[2017-11-05 18:42] LABS: ABSOLUTE BASOPHIL COUNT 0.1 /CUMM (0.0-0.2); ABSOLUTE EOSINOPHIL COUNT 0.3 /CUMM (0.0-0.7); ABSOLUTE GRANULOCYTE CT 8.1 /CUMM (1.4-6.5); ABSOLUTE LYMPH COUNT 1.9 /CUMM (1.2-3.4); ABSOLUTE MONOCYTE COUNT 1.1 /CUMM (0.10-0.60); BASOPHIL % 0.7 % (0.0-2.0); EOSINOPHIL % 2.5 % (0-5); GRANULOCYTE % 70.9 % (42.2-75.2); HEMATOCRIT 26.5 % (37-47); MEAN CORPUSCULAR HGB 30.8 PG (27.0-31.0); MEAN CORPUSCULAR HGB CONC 33.5 G/DL (33.0-37.0); MEAN CORPUSCULAR VOLUME 91.9 FL (81.0-99.0); MEAN PLATELET VOLUME 8.3 FL (7.4-10.4); PLATELET COUNT 273 /CUMM (130-400); RBC DISTRIBUTION WIDTH 13.3 % (11.5-14.5); RED BLOOD CELL CT 2.88 /CUMM (4.20-5.40); WHITE BLOOD CELL COUNT 11.4 /CUMM (4.8-10.8)
[2017-11-05 22:26] VITALS: BP 110/58
[2017-11-06 06:00] VITALS: BP 114/58
[2017-11-06 08:14] LABS: ABSOLUTE BASOPHIL COUNT 0 /CUMM (0.0-0.2); ABSOLUTE EOSINOPHIL COUNT 0.3 /CUMM (0.0-0.7); ABSOLUTE LYMPH COUNT 1.3 /CUMM (1.2-3.4); ABSOLUTE MONOCYTE COUNT 0.8 /CUMM (0.10-0.60); BASOPHIL % 0.5 % (0.0-2.0); EOSINOPHIL % 3.1 % (0-5); GRANULOCYTE % 71.1 % (42.2-75.2); HEMATOCRIT 24.8 % (37-47); MEAN CORPUSCULAR HGB 30.6 PG (27.0-31.0); MEAN CORPUSCULAR HGB CONC 33.4 G/DL (33.0-37.0); MEAN CORPUSCULAR VOLUME 91.6 FL (81.0-99.0); MEAN PLATELET VOLUME 8.1 FL (7.4-10.4); PLATELET COUNT 233 /CUMM (130-400); RBC DISTRIBUTION WIDTH 12.8 % (11.5-14.5); RED BLOOD CELL CT 2.71 /CUMM (4.20-5.40); WHITE BLOOD CELL COUNT 8.5 /CUMM (4.8-10.8)
--- NOTE | 2017-11-06 10:31 | PN- Housestaff ---
Gregory Villaseñor 11/06/17926: Subjective Follow-up For: Left femoral neck fracture, complicated by postoperative hematoma. Complaints: no complaints Subjective: Doing well this morning. Offers no complaints. States hematoma is decreasing in size and pain is well controlled with Tylenol. No chest pain, palpitations or shortness of breath. No cough. Continues to use spirometry. Other systems reviewed and negative, exceptions above. Review of Systems Constitutional: Reports: see HPI. Objective Last 24 Hrs of Vital Signs/I&O Vital Signs Date Time Temp Pulse Resp B/P B/P Pulse O2 O2 Flow FiO2 Mean Ox Delivery Rate 11/06 0600 98.3 70 18 114/58 95 / 2226 99.1 80 18 110/58 97 /04 1358 99.0 73 18 100/56 91 / 0940 79 132/78 / 0939 79 132/78 Intake & Output 11/06 1600 11/06 0800 11/06 0000 Intake Total Output Total 300 500 Balance -300 -500 Output, Urine 300 500 Physical Exam General Appearance: Alert, Oriented X3, Cooperative Cardiovascular: Regular Rate, Normal S1, Normal S2 Lungs: Clear to Auscultation, Normal Air Movement Abdomen: Normal Bowel Sounds, Soft, No Tenderness Extremities: left hip with swelling anteriorly. Sensitive to touch, not tender. Serous sanguinous drainage on dressing. Vascular: Normal Pulses, Pulses Symmetrical Current Medications: Current Medications Sig/Glo Start time Last Medication Dose Route Stop Time Status Admin Acetaminophen 500 MG Q6 11/03 0847 AC 11/06 PO 0637 Acetaminophen 650 MG Q6P PRN 11/01 2300 AC 11/04 PO 2053 Amlodipine Besylate 10 MG DAILY 11/02 1000 AC 11/05 PO 0939 Aspirin Buffered 81 MG DAILY 11/05 1115 AC 11/05 PO 1130 Atenolol 50 MG DAILY 11/02 1000 AC 11/05 PO 0940 Bisacodyl 10 MG DAILY NEEDED PRN 11/03 0815 AC [place] Calcium Carbonate 650 MG 4 TIMES/DAY PRN 11/05 1845 AC 11/05 PO 1924 Cholecalciferol 1,000 IU DAILY 11/02 1000 AC 11/05 PO 0940 Enoxaparin Sodium 40 MG DAILY 11/03 1000 DC 11/05 SC 0938 Morphine Sulfate 2 MG Q8P PRN 11/02 0900 AC 11/04 IV 2155 Ondansetron HCl 4 MG Q6P PRN 11/03 1515 AC 11/03 IV 1510 Oxycodone HCl 5 MG Q6 PRN 11/03 1030 AC 11/03 PO 1159 Polyethylene Glycol 17 GM DAILY 11/03 1000 AC 11/04 PO 1045 Pravastatin Sodium 40 MG 1700 11/02 1700 AC 11/05 PO 1617 Senna/Docusate Sodium 1 TAB BID 11/02 2200 AC 11/05 PO 2219 Last 24 Hrs of Lab/Edinson Results Last 24 Hrs of Labs/Mics: Laboratory Tests 11/06/17 0711: CBC w Diff NO MAN DIFF REQ, RBC 2.71 L, MCV 91.6, MCH 30.6, MCHC 33.4, RDW 12.8 , MPV 8.1, Gran % 71.1, Lymphocytes % 15.4 L, Monocytes % 9.9 H, Eosinophils % 3.1, Basophils % 0.5, Absolute Granulocytes 6.0, Absolute Lymphocytes 1.3, Absolute Monocytes 0.8 H, Absolute Eosinophils 0.3, Absolute Basophils 0 11/05/17 1803: CBC w Diff NO MAN DIFF REQ, RBC 2.88 L, MCV 91.9, MCH 30.8, MCHC 33.5, RDW 13.3 , MPV 8.3, Gran % 70.9, Lymphocytes % 16.3 L, Monocytes % 9.6 H, Eosinophils % 2.5, Basophils % 0.7, Absolute Granulocytes 8.1 H, Absolute Lymphocytes 1.9, Absolute Monocytes 1.1 H, Absolute Eosinophils 0.3, Absolute Basophils 0.1 Assessment/Plan Assessment: 72-year-old woman with long-standing history of osteoporosis presented to [facility] ED after sustaining a mechanical fall, underwent left hip open reduction and internal fixation complicated by hematoma, being managed conservatively with Ice application and leg elevation with gradual improvement in hematoma size and pain symptoms. 1. Left hip pinning for left femoral neck fracture complicated by postop hematoma. Resolving. NWB for 2 weeks. H and H fairly stable. Ice and elevation of affected extremity. Discharge planning when okay with surgery, has a bed at [facility]. Lovenox on hold. Cont current meds for hypertension and hyperlipidemia. Full code VTE [facility] proph Heart healthy diet Problem List: 1. Closed left hip fracture Pain Ratin Pain Location: Left hip Pain Goal: Remain pain free Pain Plan: Tylenol Tomorrow's Labs & Rationales: H and H monitoring Nga Otero MD 11/06/17 1221: Attending MD Review Statement Attending Statement Attending MD Statement: examined this patient, discuss w/resident/PA/APPLIED PSYCHOLOGY CHAIR, agreed w/resident/PA/APPLIED PSYCHOLOGY CHAIR, discussed with family, reviewed EMR data (avail), discussed with nursing, discussed with case mgmt, reviewed images, amended to note Attending Assessment/Plan: Patient seen and examined, overall feeling better today. Still complaining of pain in the left hip region. There is no increase in swelling or bruising in that area. H&H is fairly stable. Vital Signs Date Time Temp Pulse Resp B/P B/P Pulse O2 O2 Flow FiO2 Mean Ox Delivery Rate 11/06 1102 75 114/60 11/06 1101 75 114/60 11/06 0600 98.3 70 18 114/58 95 /04 2226 99.1 80 18 110/58 97 / 1358 99.0 73 18 100/56 91 on exam; aox3, nad. cv; s1,s2, rrr resp; clear abd; soft, nt, bs+ ext; no edema ms: + swelling and tenderness in left hip, + dressing. Laboratory Tests 11/06 11/05 0711 1803 Hematology CBC w Diff NO MAN DIFF REQ NO MAN DIFF REQ WBC (4.8 - 10.8 /CUMM) 8.5 11.4 H RBC (4.20 - 5.40 /CUMM) 2.71 L 2.88 L Hgb (12.0 - 16.0 G/DL) 8.3 L 8.9 L Hct (37 - 47 %) 24.8 L 26.5 L MCV (81.0 - 99.0 FL) 91.6 91.9 MCH (27.0 - 31.0 PG) 30.6 30.8 MCHC (33.0 - 37.0 G/DL) 33.4 33.5 RDW (11.5 - 14.5 %) 12.8 13.3 Plt Count (130 - 400 /CUMM) 233 273 MPV (7.4 - 10.4 FL) 8.1 8.3 Gran % (42.2 - 75.2 %) 71.1 70.9 Lymphocytes % (20.5 - 51.1 %) 15.4 L 16.3 L Monocytes % (1.7 - 9.3 %) 9.9 H 9.6 H Eosinophils % (0 - 5 %) 3.1 2.5 Basophils % (0.0 - 2.0 %) 0.5 0.7 Absolute Granulocytes (1.4 - 6.5 /CUMM) 6.0 8.1 H Absolute Lymphocytes (1.2 - 3.4 /CUMM) 1.3 1.9 Absolute Monocytes (0.10 - 0.60 /CUMM) 0.8 H 1.1 H Absolute Eosinophils (0.0 - 0.7 /CUMM) 0.3 0.3 Absolute Basophils (0.0 - 0.2 /CUMM) 0 0.1 A/P; 72 y/o F with pmh sig for hypertension, hyperlipidemia, scoliosis, chronic lower back pain, osteoarthritis, osteoporosis, emphysema not on home oxygen, peptic ulcer disease with bleeding peptic ulcer requiring gastrectomy, cholecystectomy, hernia repair, former smoker 20 years ago, admitted with a mechanical fall and sustained a left femoral neck fracture, s/p Left hip pinning POD #4 today. Over the weekend patient developed hematoma. Currently H&H is relatively stable and pain is improving. Patient to be nonweightbearing on the left foot externally for 2 weeks. Patient was out of bed to chair. Will likely discontinue her Salcedo catheter today. Current pain management is adequate. Continue bowel regimen. Lovenox was discontinued secondary to patient developing hematoma. Patient currently on ALPS for DVT prophylaxis. Likely discharge in the next 24 hours if remains stable.
[2017-11-06 14:42] VITALS: BP 108/56
[2017-11-06 21:58] VITALS: BP 98/58
[2017-11-07 07:35] VITALS: BP 108/64
[2017-11-07 08:03] LABS: ABSOLUTE BASOPHIL COUNT 0 /CUMM (0.0-0.2); ABSOLUTE EOSINOPHIL COUNT 0.3 /CUMM (0.0-0.7); ABSOLUTE GRANULOCYTE CT 6.6 /CUMM (1.4-6.5); ABSOLUTE LYMPH COUNT 1.1 /CUMM (1.2-3.4); ABSOLUTE MONOCYTE COUNT 0.9 /CUMM (0.10-0.60); BASOPHIL % 0.4 % (0.0-2.0); GRANULOCYTE % 73.7 % (42.2-75.2); HEMATOCRIT 27.2 % (37-47); MEAN CORPUSCULAR HGB 30.8 PG (27.0-31.0); MEAN CORPUSCULAR HGB CONC 33.8 G/DL (33.0-37.0); MEAN CORPUSCULAR VOLUME 91.1 FL (81.0-99.0); MEAN PLATELET VOLUME 7.9 FL (7.4-10.4); PLATELET COUNT 302 /CUMM (130-400); RBC DISTRIBUTION WIDTH 13.2 % (11.5-14.5); RED BLOOD CELL CT 2.98 /CUMM (4.20-5.40); WHITE BLOOD CELL COUNT 8.9 /CUMM (4.8-10.8)
[2017-11-07] MEDS ORDERED: ACETAMINOPHEN500 M4 PO (09:51)
--- NOTE | 2017-11-07 10:07 | PN- Housestaff ---
Subjective Follow-up For: Left femoral neck fracture, complicated by postoperative hematoma. Subjective: Doing well this morning. Offers no complaints. States hematoma is decreasing in size and pain is well controlled with Tylenol. No chest pain, palpitations or shortness of breath. No cough. Continues to use spirometry. Other systems reviewed and negative, exceptions above. Review of Systems Constitutional: Reports: see HPI. Objective Last 24 Hrs of Vital Signs/I&O Vital Signs Date Time Temp Pulse Resp B/P B/P Pulse O2 O2 Flow FiO2 Mean Ox Delivery Rate 11/07 1027 98.4 80 20 104/62 03/06 0855 80 104/62 /06 0854 80 104/62 /06 0735 98.4 82 20 108/64 92 03/05 2158 97.5 82 20 98/58 90 Room Air Intake & Output 11/07 1600 11/07 0800 11/07 0000 Intake Total Output Total 2150 500 Balance -2150 -500 Output, Urine 2150 500 Physical Exam General Appearance: Alert, Oriented X3, Cooperative Cardiovascular: Regular Rate, Normal S1, Normal S2 Lungs: Clear to Auscultation, Normal Air Movement Abdomen: Normal Bowel Sounds, Soft Extremities: No Clubbing, No Cyanosis Assessment/Plan Assessment: 72-year-old woman with long-standing history of osteoporosis presented to [facility] ED after sustaining a mechanical fall, underwent left hip open reduction and internal fixation complicated by hematoma, being managed conservatively with Ice application and leg elevation with gradual improvement in hematoma size and pain symptoms. 1. Left hip pinning for left femoral neck fracture complicated by postop hematoma. Resolving. NWB for 2 weeks. H and H fairly stable. Ice and elevation of affected extremity. Discharge to [facility] today. Lovenox on hold. Cont current meds for hypertension and hyperlipidemia. Update: 11/07/2017, 4 PM. Patient was discharged this afternoon to [facility]. Upon further discussion with surgery team, it was ascertained that it would be in the best interest of the patient to have a follow-up ultrasound lower extremities to rule out DVT. A verbal order was placed at [facility] facility for ultrasound lower extremity and I left my personal cell phone number with the nurse taking care of Ms. Ross to call me back with the results. Patient obviously is not on any Lovenox, given her recent hematoma. Aspirin was held upon discharge, due to concerns of upper GI bleed secondary to a peptic ulcer. This was discussed with Kayleen, patient's daughter, who notified that this happened more than 10 years ago. She hasn't had any recent bleeding episodes. A verbal order to start aspirin enteric-coated 81 mg was placed at the [facility]. Discussed with surgery team, and they are in agreement. Full code VTE [facility] proph Heart healthy diet Problem List: 1. Closed left hip fracture Pain Ratin Pain Location: Tylenol Pain Goal: Remain pain free Pain Plan: PRN Tomorrow's Labs & Rationales: Not needed
[2017-11-07 10:27] VITALS: BP 104/62
--- NOTE | 2017-11-07 12:34 | PN- Att Addend ---
Attending Addendum Attending Brief Note Patient seen and examined, feels okay. Pain is controlled with current regimen. H&H remained stable. Vital signs are stable. The operative site looks okay. Patient is medically stable for discharge. There was no orthopedic follow up note from 11/06/17 or 11/07/17. I did speak with surgical PA this morning notifying them the fact that patient is not on any DVT prophylaxis secondary to hematoma. Patient does have history of peptic ulcer disease with gastrectomy according to her pmh therefore aspirin which was started over the weekend was discontinued. No recommendations were given from the surgical PA at that time over the phone and they did mention that they will get in touch base with orthopedic attending. Later on after the patient got discharge I received a call from surgical PA stating that orthopedic recommends that patient should have a lower extremity Doppler ultrasound and consider baby aspirin if at all possible. Unfortunately patient has already been discharged. We will call the [facility] and arrange for the Doppler ultrasound. We will also try to clarify with the patient if aspirin is an absolute contraindication for her or if she can take a baby aspirin. Addendum: we did order LE doppler US to be done at [facility]. They will call with results. Carmelita Villaseñor spoke with patient's daughter who mentioned that PUD was many yrs ago. We did recommend starting the patient on baby ASA. Will follow up on LE doppler US. Patient's daughter was made aware of the situation.
== END 2017-11-07 11:43 | DRG 482 ==
LOC: ERH 19:41 → 2NB 21:04 → ERHI 21:04 → ENRESERV 11-02 11:08 → ENTRNSPT 11-02 12:06 → EDTRNSPT 11-02 12:40 → EDTRNSPTSTS 11-02 12:40 → 2NB 11-02 12:49 → CMPTRNSPT 11-02 13:03 → ENTRNSPT 11-02 19:11 → EDTRNSPTSTS 11-02 19:17 → CMPTRNSPT 11-02 19:50 → 2NB 11-03 08:21 → ENPENDDIS 11-07 10:13 → 2NB 11-07 11:43
PROVIDERS: Internal Medicine; Internal Medicine Hematology & Oncology; Physician Assistant Medical; Physician Assistant Surgical; Student in an Organized Health Care Education/Training Program
PROC: 0QH734Z Insertion of Internal Fixation Device into Left Upper Femur, Percutaneous Approach (ICD-10-PCS; principal; 2017-11-02)
DX: M80.852A Other osteoporosis with current pathological fracture, left femur, initial encounter for fracture (principal); J44.9 Chronic obstructive pulmonary disease, unspecified; M41.9 Scoliosis, unspecified; I10 Essential (primary) hypertension; D72.829 Elevated white blood cell count, unspecified; S80.02XA Contusion of left knee, initial encounter; Y93.9 Activity, unspecified; Y92.9 Unspecified place or not applicable; Z87.891 Personal history of nicotine dependence; Z90.49 Acquired absence of other specified parts of digestive tract; Z91.81 History of falling; M17.0 Bilateral primary osteoarthritis of knee; W01.0XXA Fall on same level from slipping, tripping and stumbling without subsequent striking against object, initial encounter; Y92.008 Other place in unspecified non-institutional (private) residence as the place of occurrence of the external cause; Z88.6 Allergy status to analgesic agent; Z88.1 Allergy status to other antibiotic agents; Z88.2 Allergy status to sulfonamides; Z90.3 Acquired absence of stomach [part of]
CPT/HCPCS: 2NBSP; ERO; 36415; 36592; 71045; 72170; 73501; 73502-LT; 81001; 82436; 87040; 87086; 93005; 93010; 96374; 97110-GO; 97116-GO; 97161-GP; 97530-GO; J0131; J0690; J1644; J1650; J2405